=== PATIENT | female | born 1940 | race Caucasian/White ===

== ENCOUNTER 2016-08-07 14:18 | Observation (INO) ==
[2016-08-07] MEDS ORDERED: Ondansetron 4 MG/2 ML VIAL IVP ONE (15:45)
[2016-08-07] MEDS ORDERED: Ipratropium/Albuterol Neb 3 ML IH ONE (15:45)
--- NOTE | 2016-08-07 15:48 | Emergency Department Note ---
Disposition Clinical Impression: Community acquired pneumonia, Hypoxia Disposition: Admitted As Inpatient Condition: Fair Referrals: Sara Hernandez DO [Primary Care Provider] - Forms: ED Satisfaction Letter Time of Disposition: 18:08 General Adult HPI - General Chief complaint: ED Shortness of Breath/Dyspnea Stated complaint: Cough,congestion, SOB Time Seen by Provider: 08/07/16 14:35 Source: patient, family Limitations: no limitations Nursing Notes Reviewed: Yes Vital Signs Reviewed: Yes - History of Present Illness HPI Narrative: 76-year-old female who comes in complaining of initially developed a cough about a week ago progressed to sore throat with pain on swallowing and now with nausea and diarrhea. Pain Scale: 2 - Related Data Home Medications Medication Instructions Recorded Confirmed Aspirin Enteric Coated [Aspirin EC] 81 mg PO DAILY 07/28/15 07/28/15 Cyclobenzaprine [Flexeril] 10 mg PO TID 07/28/15 07/28/15 Docusate [Colace] 100 mg PO BID 07/28/15 07/28/15 Hydrochlorothiazide 25 mg PO DAILY 07/28/15 07/28/15 Insulin ASPART [NovoLOG] 30 unit SQ BID 07/28/15 07/28/15 Insulin NPH Hum/Reg Insulin Hm 100 unit SQ QAM 07/28/15 07/28/15 [Humulin 70/30 Kwikpen] Loratadine [Claritin] 10 mg PO DAILY 07/28/15 07/28/15 Meclizine [Antivert] 25 mg PO DAILY PRN 07/28/15 07/28/15 Multivit-Min/FA/Lycopen/Lutein 1 tab PO DAILY 07/28/15 07/28/15 [Centrum Silver Tablet] Omeprazole [PriLOSEC] 20 mg PO DAILY 07/28/15 07/28/15 Polyethylene Glycol 3350 [MiraLAX] 17 gm PO DAILY 07/28/15 07/28/15 Potassium Chloride 20 meq PO DAILY 07/28/15 07/28/15 Propranolol HCl [Inderal LA] 120 mg PO DAILY 07/28/15 07/28/15 Quinapril HCl [Accupril] 40 mg PO DAILY 07/28/15 07/28/15 [place] Oil/[place]-3 Fatty Acids 1 cap PO DAILY 07/28/15 07/28/15 [Fish Oil 500 mg Softgel] Previous Rx's Medication Instructions Recorded Alprazolam [Xanax 1 MG Tablet] 1 mg PO BID #20 tablet 07/30/15 Amitriptyline [Elavil] 10 mg PO HS tablet 07/30/15 Butalbital/Aspirin/Caffeine 1 cap PO AD PRN #20 capsule 07/30/15 [Fiorinal 50-325-40 mg Capsule] Oxycodone HCl/Acetaminophen 1 tab PO QID PRN #20 tablet 07/30/15 [Percocet 10-325 mg Tablet] Allergies Allergy/AdvReac Type Severity Reaction Status Date / Time morphine Allergy Rash Verified 08/07/16 14:24 Sulfa (Sulfonamide Allergy Rash Verified 08/07/16 14:24 Antibiotics) Constitutional: Denies: fever, chills, weakness, weight change Eyes: Denies: eye pain, eye discharge, vision change ENT ED: Denies: ear pain, throat pain, dental pain, hearing loss, epistaxis, congestion, dysphagia Cardiovascular: Reports: chest pain. Denies: palpitations, dyspnea on exertion , edema, syncope Respiratory: Reports: cough. Denies: dyspnea, wheezes, hemoptysis, stridor Gastrointestinal: Reports: abdominal pain, nausea, diarrhea. Denies: vomiting, constipation, hematemesis, melena, hematochezia Genitourinary: Denies: dysuria, frequency, hematuria, discharge Musculoskeletal: Denies: back pain, neck pain, arthralgia, myalgia Integumentary: Denies: rash, abrasion, lesions Neurological: Denies: headache, weakness, numbness, paresthesias, confusion, abnormal gait, vertigo Psychiatric: Denies: anxiety, depression, suicidal thoughts, homicidal thoughts , auditory hallucinations, visual hallucinations Endocrine: Denies: fatigue Hematological/Lymphatic: Denies: easy bleeding, easy bruising Allergic/Immunologic: Denies: facial swelling, urticaria Past Medical History - Past Medical History Medical history: Reports: arthritis, coronary artery disease, diabetes, fibromyalgia, GERD, hypertension Surgical history: Reports: cholecystectomy, hysterectomy Psychiatric history: Reports: anxiety - Social History Smoking Status: Never smoker Smokeless Tobacco Status: No Alcohol use: Reports: none Drug use: Reports: none Physical Exam - General Limitations: no limitations General appearance: alert - Head Head exam: atraumatic, normocephalic, normal inspection - Eye Eye exam: Present: normal appearance, PERRL, EOMI - ENT ENT exam: normal exam, normal oropharynx, mucous membranes moist - Neck Neck exam: Present: normal inspection, full ROM, trachea midline - Chest Chest inspection: Present: normal inspection, symmetric chest wall rise - Respiratory Respiratory exam: Present: normal lung sounds bilaterally - Cardiovascular Cardiovascular exam: Present: regular rate, normal rhythm, normal heart sounds - Abdominal Exam Abdominal exam: Present: soft, Non-Tender. Absent: tenderness, distention, guarding, rebound, rigidity - Extremities Exam Extremities exam: Present: normal inspection, full ROM. Absent: tenderness, pedal edema - Expanded Lower Extremity Exam Neurovascular/Tendon exam: Absent: motor deficit, sensory deficit, tendon deficit Gait: not tested/not observed - Back Exam Back exam: Present: normal inspection, full ROM. Absent: tenderness - Neurological Exam Neurological exam: Present: alert, oriented X3 - Psychiatric Psychiatric exam: Present: normal affect, normal mood - Skin Skin exam: Present: warm, dry, intact, normal color Course - Consultations Consultation #1: 76-year-old comes in had some scattered wheezes that responded to the breathing treatment en route dropped her pulse ox when she came off of her off oxygen that she was on here. Patient does not wear oxygen she does have sleep apnea however. He had abdominal pain we did obtain a CT of the abdomen CT does show focal right lower lobe infiltrate. The patient does have a low risk for PE and she is not tachycardic she does have a slight elevation in her d-dimer at 992. Stress this with the admitting physician Dr. Landers we will not do that he contrasted CT at this time, since she does drop her oxygen we will go ahead and admit with a community-acquired pneumonia.. Time: 18:14 Vital Signs Temperature 97.9 F 08/07/16 14:19 Pulse Rate 79 08/07/16 14:19 Respiratory Rate 20 08/07/16 14:19 Blood Pressure 150/68 08/07/16 14:19 O2 Sat by Pulse Oximetry 98 08/07/16 14:19 Temperature 97.9 F 08/07/16 14:19 Pulse Rate 95 08/07/16 17:40 Respiratory Rate 18 08/07/16 17:40 Blood Pressure 162/65 08/07/16 17:40 O2 Sat by Pulse Oximetry 97 08/07/16 17:40 Oxygen Delivery Oxygen Delivery Nasal Cannula Medical Decision Making - Lab Data Lab results reviewed: Yes I reviewed the patient's lab results. Result diagrams: 08/07/16 16:51 08/07/16 16:51 Lab Results 08/07/16 08/07/16 08/07/16 Range/Units 16:25 16:51 16:51 WBC 10.5 (4.3-11.1) K/mcL RBC 4.59 (3.82-4.97) M/mcL Hgb 13.2 (11.5-15.4) g/dL Hct 40.1 (35.3-44.9) % MCV 87.4 (83.0-100.0) fL MCH 28.8 (28.0-33.3) pg MCHC 32.9 (31.6-35.5) g/dL RDW 13.1 (11.5-14.5) % Plt Count 318 (140-400) K/mcL MPV 9.4 (9.4-12.4) fL Immature Gran % 0.3 (0-4) % Seg Neutrophils % 75.9 % Lymphocytes % 14.6 % Monocytes % 6.2 % Eosinophils % 2.6 % Basophils % 0.4 % Neutrophils # 8.0 (1.6-8.9) K/mcL Lymphocytes # 1.5 (0.6-4.6) K/mcL Monocytes # 0.7 (0.0-1.3) K/mcL Eosinophils # 0.3 (0.0-0.6) K/mcL Basophils # 0.0 (0.0-0.2) K/mcL PT 11.0 (9.4-12.1) Seconds INR 1.0 APTT 29.0 (26.0-36.0) Seconds D-Dimer 992 H (0-500) ng/mLFEU Sodium (136-145) mEq/L Potassium (3.5-4.5) mEq/L Chloride (98-109) mEq/L Carbon Dioxide (19-29) mEq/L BUN (7-20) mg/dL Creatinine (0.57-1.11) mg/dL Est GFR ( Amer) (> 60) Est GFR (Non-Af Amer) (> 60) BUN/Creatinine Ratio (6-26) Glucose (70-99) mg/dL POC Glucose (58-89) Calculated Osmolality (280-300) Lactic Acid (0.5-2.2) mmol/L Calcium (8.6-10.8) mg/dL Troponin I (0-0.03) ng/mL B-Natriuretic Peptide (0-100) pg/mL Urine Color Yellow (Yellow) Urine Clarity Clear (Clear) Urine pH 7.0 (5.0-8.0) pH Units Ur Specific [place] 1.011 (1.010-1.025) Urine Protein Negative (Neg-Trace) mg/dL Urine Glucose (UA) Normal (Normal) mg/dL Urine Ketones Negative (Negative) mg/dL Urine Blood Negative (Negative) Urine Nitrite Negative (Negative) Urine Bilirubin Negative (Negative) Urine Urobilinogen Normal (Normal) mg/dL Ur Leukocyte Esterase Negative (Negative) Ur Culture Indicated? NO (NO) 08/07/16 08/07/16 08/07/16 Range/Units 16:51 16:51 16:51 WBC (4.3-11.1) K/mcL RBC (3.82-4.97) M/mcL Hgb (11.5-15.4) g/dL Hct (35.3-44.9) % MCV (83.0-100.0) fL MCH (28.0-33.3) pg MCHC (31.6-35.5) g/dL RDW (11.5-14.5) % Plt Count (140-400) K/mcL MPV (9.4-12.4) fL Immature Gran % (0-4) % Seg Neutrophils % % Lymphocytes % % Monocytes % % Eosinophils % % Basophils % % Neutrophils # (1.6-8.9) K/mcL Lymphocytes # (0.6-4.6) K/mcL Monocytes # (0.0-1.3) K/mcL Eosinophils # (0.0-0.6) K/mcL Basophils # (0.0-0.2) K/mcL PT (9.4-12.1) Seconds INR APTT (26.0-36.0) Seconds D-Dimer (0-500) ng/mLFEU Sodium 137 (136-145) mEq/L Potassium 3.6 (3.5-4.5) mEq/L Chloride 102 (98-109) mEq/L Carbon Dioxide 24 (19-29) mEq/L BUN 13 (7-20) mg/dL Creatinine 0.79 (0.57-1.11) mg/dL Est GFR ( Amer) > 60 (> 60) Est GFR (Non-Af Amer) > 60 (> 60) BUN/Creatinine Ratio 16 (6-26) Glucose 182 H (70-99) mg/dL POC Glucose (58-89) Calculated Osmolality 289 (280-300) Lactic Acid 1.8 (0.5-2.2) mmol/L Calcium 9.4 (8.6-10.8) mg/dL Troponin I 0.00 (0-0.03) ng/mL B-Natriuretic Peptide (0-100) pg/mL Urine Color (Yellow) Urine Clarity (Clear) Urine pH (5.0-8.0) pH Units Ur Specific [place] (1.010-1.025) Urine Protein (Neg-Trace) mg/dL Urine Glucose (UA) (Normal) mg/dL Urine Ketones (Negative) mg/dL Urine Blood (Negative) Urine Nitrite (Negative) Urine Bilirubin (Negative) Urine Urobilinogen (Normal) mg/dL Ur Leukocyte Esterase (Negative) Ur Culture Indicated? (NO) 08/07/16 08/07/16 Range/Units 16:51 17:51 WBC (4.3-11.1) K/mcL RBC (3.82-4.97) M/mcL Hgb (11.5-15.4) g/dL Hct (35.3-44.9) % MCV (83.0-100.0) fL MCH (28.0-33.3) pg MCHC (31.6-35.5) g/dL RDW (11.5-14.5) % Plt Count (140-400) K/mcL MPV (9.4-12.4) fL Immature Gran % (0-4) % Seg Neutrophils % % Lymphocytes % % Monocytes % % Eosinophils % % Basophils % % Neutrophils # (1.6-8.9) K/mcL Lymphocytes # (0.6-4.6) K/mcL Monocytes # (0.0-1.3) K/mcL Eosinophils # (0.0-0.6) K/mcL Basophils # (0.0-0.2) K/mcL PT (9.4-12.1) Seconds INR APTT (26.0-36.0) Seconds D-Dimer (0-500) ng/mLFEU Sodium (136-145) mEq/L Potassium (3.5-4.5) mEq/L Chloride (98-109) mEq/L Carbon Dioxide (19-29) mEq/L BUN (7-20) mg/dL Creatinine (0.57-1.11) mg/dL Est GFR ( Amer) (> 60) Est GFR (Non-Af Amer) (> 60) BUN/Creatinine Ratio (6-26) Glucose (70-99) mg/dL POC Glucose 159 H (58-89) Calculated Osmolality (280-300) Lactic Acid (0.5-2.2) mmol/L Calcium (8.6-10.8) mg/dL Troponin I (0-0.03) ng/mL B-Natriuretic Peptide 13 (0-100) pg/mL Urine Color (Yellow) Urine Clarity (Clear) Urine pH (5.0-8.0) pH Units Ur Specific [place] (1.010-1.025) Urine Protein (Neg-Trace) mg/dL Urine Glucose (UA) (Normal) mg/dL Urine Ketones (Negative) mg/dL Urine Blood (Negative) Urine Nitrite (Negative) Urine Bilirubin (Negative) Urine Urobilinogen (Normal) mg/dL Ur Leukocyte Esterase (Negative) Ur Culture Indicated? (NO) - EKG Data EKG #1 EKG attestation: Yes I reviewed and interpreted this EKG. EKG shows normal: sinus rhythm Rate: normal Rhythm: NSR Interpretation: no acute changes
[2016-08-07 16:35] LABS: Bilirubin,Urine Negative (Negative); Blood,Urine Negative (Negative); Clarity,Urine Clear (Clear); Color,Urine Yellow (Yellow); Glucose,Urine (UA) Normal (Normal); Ketones,Urine Negative (Negative); Leukocyte Esterase,Urine Negative (Negative); Nitrite,Urine Negative (Negative); Protein,Urine Negative (Neg-Trace); Specific Gravity,Urine 1.011 (1.010-1.025); Urobilinogen,Urine Normal (Normal)
[2016-08-07] MEDS: 0.9 % Sodium Chloride 1,000 ML IVC SCH ×2 (16:36→20:34)
[2016-08-07 17:00] LABS: Basophils % 0.4 %; Eosinophils # 0.3 K/mcL (0.0-0.6); Eosinophils % 2.6 %; Hematocrit 40.1 % (35.3-44.9); Hemoglobin 13.2 g/dL (11.5-15.4); Immature Granulocytes % 0.3 % (0-4); Lymphocytes # 1.5 K/mcL (0.6-4.6); Lymphocytes % 14.6 %; Mean Corpuscular HGB Conc 32.9 g/dL (31.6-35.5); Mean Corpuscular Hemoglobin 28.8 pg (28.0-33.3); Mean Corpuscular Volume 87.4 fL (83.0-100.0); Mean Platelet Volume 9.4 fL (9.4-12.4); Monocytes # 0.7 K/mcL (0.0-1.3); Monocytes % 6.2 %; Platelet Count 318 K/mcL (140-400); Red Blood Count 4.59 M/mcL (3.82-4.97); Red Cell Distribution Width 13.1 % (11.5-14.5); Segmented Neutrophils % 75.9 %
[2016-08-07 17:13] LABS: BUN/Creatinine Ratio 16 (6-26); Blood Urea Nitrogen 13 mg/dL (7-20); Calcium 9.4 mg/dL (8.6-10.8); Carbon Dioxide 24 mEq/L (19-29); Chloride 102 mEq/L (98-109); Glucose 182 mg/dL (70-99); Osmolality,Calculated 289 (280-300); Potassium 3.6 mEq/L (3.5-4.5); Sodium 137 mEq/L (136-145); eGFR For African Americans > 60 (> 60); eGFR For Non-African Americans > 60 (> 60)
[2016-08-07] MEDS ORDERED: Azithromycin 500 MG in D5% in Water 250 ML IVPB ONE (18:06)
[2016-08-07] MEDS ORDERED: *HR* OxyCODONE/APAP 10/325 TABLET PO ONE (18:47)
[2016-08-07] MEDS ORDERED: Acetaminophen 325 MG TABLET PO PRN (18:57)
[2016-08-07] MEDS ORDERED: Ondansetron 4 MG/2 ML VIAL IVP PRN (18:57)
[2016-08-07] MEDS ORDERED: Naloxone 0.4 MG/ML INJ IVP PRN (18:57)
[2016-08-07] MEDS ORDERED: D5% in Water 1,000 ML IV PRN (19:02)
[2016-08-07] MEDS ORDERED: *HR* Dextrose 50 % in Water (Syg) 50 ML SYRINGE IVP PRN (19:02)
[2016-08-07] MEDS ORDERED: Dextrose Gel 15 GM PO PRN ×2 (19:02)
--- NOTE | 2016-08-07 19:21 | Internal Med History&Physical ---
Date of Encounter: 08/07/16 Time of Encounter: 19:19 Assessment and Plan (1) Community acquired pneumonia Current visit: Yes Status: Acute RLL pneumonia Afebrile, no leukocytosis Possibly viral due to previous week long viral symptoms check urine legionella and strep antigen CPAP for OHS/MIRIAN at bedtime Supplemental O2 to keep O2 sat >92% Robitussin/Lozenges for sore throat D-dimer noted to be elevated, patient is not hypoxic when i took off the supplemental O2, and she is not tachycardic, there is very low suspicion for PE. CXR, Abd CT with RLL pneumonia Anticipate early d/c (2) CAD (coronary artery disease) Current visit: Yes Status: Chronic Chronic, stable, resume home meds Qualifiers: Coronary Disease-Associated Artery/Lesion type: [place] artery [place] vs. transplanted heart: [place] heart Associated angina: without angina Qualified Code(s): I25.10 - Atherosclerotic heart disease of [place] coronary artery without angina pectoris (3) Fibromyalgia Current visit: Yes Status: Chronic Chronic, stable, resume home meds (4) Hypertension Current visit: Yes Status: Chronic Resume home meds Hold ACEI for now Qualifiers: Hypertension type: essential hypertension Qualified Code(s): I10 - Essential (primary) hypertension (5) Insulin dependent diabetes mellitus Current visit: Yes Status: Chronic FS ACHS Basal, prandial and supplemental insulin Internal Medicine - H&P: HPI Chief complaint: Cough Admitted From: Home Plans for Post Hospital Care: Home History of present illness: Ms. Nickerson is a 76 year old female with PMH of HTN, DM, MIRIAN/OHS on CPAP , Chronic low back pain, FIbromyalgia Presented with one week history of cough, dry, with rhinorrhea, sore throat, generalized body pains She reports having sick contacts, no hospitalization in past 3 months/90 days Symptoms initially started with "the flu bug", rhinorrhea, dry cough and sore throat Now cough is persistent with SOB and voice hoarseness She is not on home O2 but is on CPAP at home for MRIIAN/OHS She denies recent travel. She reports trying OTC medications that didn't work She denies chest pain, dizziness, diaphoresis Reports abdominal pain from constant coughing, recent diarrhea but has only gone once today Past Med Surg Social Fam HX - Past Medical History Medical history: arthritis, coronary artery disease, diabetes, fibromyalgia, GERD, hypertension Psychiatric history: anxiety - Past Surgical History Surgical History: cholecystectomy, hysterectomy - Social History Smoking Status: Never smoker Smokeless Tobacco Status: No Alcohol use: none Drug use: none Internal Medicine - H&P: Meds Aspirin Enteric Coated [Aspirin EC] 81 mg PO DAILY 07/28/15 [History] Cyclobenzaprine [Flexeril] 10 mg PO TID 07/28/15 [History] Docusate [Colace] 100 mg PO BID 07/28/15 [History] Hydrochlorothiazide 25 mg PO DAILY 07/28/15 [History] Insulin ASPART [NovoLOG] 30 unit SQ BID 07/28/15 [History] Insulin NPH Hum/Reg Insulin Hm [Humulin 70/30 Kwikpen] 100 unit SQ QAM 07/28/15 [History] Loratadine [Claritin] 10 mg PO DAILY 07/28/15 [History] Meclizine [Antivert] 25 mg PO DAILY PRN 07/28/15 [History] Multivit-Min/FA/Lycopen/Lutein [Centrum Silver Tablet] 1 tab PO DAILY 07/28/15 [ History] Omeprazole [PriLOSEC] 20 mg PO DAILY 07/28/15 [History] Polyethylene Glycol 3350 [MiraLAX] 17 gm PO DAILY 07/28/15 [History] Potassium Chloride 20 meq PO DAILY 07/28/15 [History] Propranolol HCl [Inderal LA] 120 mg PO DAILY 07/28/15 [History] Quinapril HCl [Accupril] 40 mg PO DAILY 07/28/15 [History] [place] Oil/[place]-3 Fatty Acids [Fish Oil 500 mg Softgel] 1 cap PO DAILY [History] Alprazolam [Xanax 1 MG Tablet] 1 mg PO BID #20 tablet 07/30/15 [Rx] Amitriptyline [Elavil] 10 mg PO HS tablet 07/30/15 [Rx] Butalbital/Aspirin/Caffeine [Fiorinal 50-325-40 mg Capsule] 1 cap PO AD PRN #20 capsule 07/30/15 [Rx] Oxycodone HCl/Acetaminophen [Percocet 10-325 mg Tablet] 1 tab PO QID PRN #20 tablet 07/30/15 [Rx] Allergies morphine Allergy (Verified 08/07/16 14:24) Rash Sulfa (Sulfonamide Antibiotics) Allergy (Verified 08/07/16 14:24) Rash All Systems PM: A 10-system review of systems was performed and is negative for pertinent findings except as documented above in the HPI. - Constitutional Constitutional: no chills, no fever(s), no night sweats - EENT Eyes: as per HPI Ears: as per HPI Nose, mouth and throat: as per HPI - Cardiovascular Cardiovascular ROS IM: as per HPI - Respiratory Respiratory: as per HPI - Gastrointestinal Gastrointestinal: as per HPI - Genitourinary Genitourinary: no change in urinary stream, no dysuria, no flank pain, no hematuria - Musculoskeletal Musculoskeletal ROS IM: no numbness, no tingling - Integumentary Integumentary IM: no rash, no unusual bruising - Neurological Neurological ROS: no confusion, no convulsions, no focal weakness, no numbness, no tingling, no tremor(s) - Hematologic/Lymphatic Hematologic/Lymphatic: no easy bruising - Constitutional Vitals: Temp Pulse Resp BP Pulse Ox 97.9 F 92 18 161/67 97 08/07/16 14:19 08/07/16 18:30 08/07/16 19:00 08/07/16 19:00 08/07/16 18:30 General appearance: Present: A&O X 3, pleasant, no acute distress - Head Head exam: Present: atraumatic, normocephalic - Eye Eye exam: Present: PERRL, conjuntiva pink, sclera anicteric - ENT Additional comments: Pharyngeal erythema, no exudates - Respiratory Additional comments: Right basal rhonchi. Chest is otherwise clear - Cardiovascular Cardiovascular exam: Present: RRR, +S1, +S2. Absent: rubs, systolic murmur, tachycardia - GI/Abdominal GI/Abdominal exam: Present: normal bowel sounds, soft, no peritoneal signs. Absent: distended, tenderness - Extremities Exam Extremities exam: Absent: pedal edema - Neurological Exam Neurological exam: Present: CN II-XII intact, oriented X3, no focal deficits. Absent: pronater drift, facial droop, speech deficit - Skin Skin exam: Present: dry, intact Internal Med - H&P Results - Labs CBC & Chem 7: 08/07/16 16:51 08/07/16 16:51
[2016-08-07] MEDS: ALPRAZolam 1 MG TABLET PO SCH (20:34)
[2016-08-07] MEDS: Insulin LISPRO 300 UNITS/3 ML VIAL SQ SCH (21:03)
[2016-08-07] MEDS: Insulin DETEMIR 100 UNIT/ML X5UNITS SQ SCH (21:57)
[2016-08-08] MEDS: *HR* OxyCODONE/APAP 10/325 TABLET PO PRN ×2 (02:13→19:57)
[2016-08-08 05:07] LABS: Basophils % 0.3 %; Eosinophils # 0.2 K/mcL (0.0-0.6); Eosinophils % 2.3 %; Hematocrit 39.3 % (35.3-44.9); Hemoglobin 12.6 g/dL (11.5-15.4); Immature Granulocytes % 0.4 % (0-4); Lymphocytes # 1.8 K/mcL (0.6-4.6); Lymphocytes % 19.1 %; Mean Corpuscular HGB Conc 32.1 g/dL (31.6-35.5); Mean Corpuscular Hemoglobin 28.4 pg (28.0-33.3); Mean Corpuscular Volume 88.7 fL (83.0-100.0); Mean Platelet Volume 9.7 fL (9.4-12.4); Monocytes # 0.7 K/mcL (0.0-1.3); Monocytes % 7.3 %; Neutrophils # 6.5 K/mcL (1.6-8.9); Platelet Count 307 K/mcL (140-400); Red Blood Count 4.43 M/mcL (3.82-4.97); Red Cell Distribution Width 13.1 % (11.5-14.5); Segmented Neutrophils % 70.6 %
[2016-08-08 05:16] LABS: BUN/Creatinine Ratio 13 (6-26); Blood Urea Nitrogen 10 mg/dL (7-20); Calcium 8.5 mg/dL (8.6-10.8); Carbon Dioxide 26 mEq/L (19-29); Chloride 105 mEq/L (98-109); Glucose 158 mg/dL (70-99); Osmolality,Calculated 290 (280-300); Potassium 3.6 mEq/L (3.5-4.5); Sodium 139 mEq/L (136-145); eGFR For African Americans > 60 (> 60); eGFR For Non-African Americans > 60 (> 60)
[2016-08-08] MEDS: 0.9 % Sodium Chloride 1,000 ML IVC SCH (05:46)
[2016-08-08] MEDS: Insulin LISPRO 300 UNITS/3 ML VIAL SQ SCH ×7 (07:46→20:08)
[2016-08-08] MEDS: ALPRAZolam 1 MG TABLET PO SCH ×2 (09:19→19:57)
[2016-08-08] MEDS: Aspirin Enteric Coated 81 MG Tablet PO SCH (09:19)
[2016-08-08] MEDS: Propranolol LA (24 HR) 60 MG CAP.SA.24H PO SCH (09:19)
[2016-08-08] MEDS: Multivit/Ca/Min/Fe/FA 1 TAB TABLET PO SCH (09:20)
--- NOTE | 2016-08-08 12:46 | Internal Med Progress Note ---
Date of Encounter: 08/08/16 Time of Encounter: 10:15 - Assessment and plan (1) Community acquired pneumonia Current Visit: Yes Status: Acute Assessment and plan: Abdominal pelvic CT revealing likely right lower lobe pneumonia. Patient is currently on room air and tolerating it well. Continue azithromycin and ceftriaxone. Patient still endorsing mild weakness and would like to remain in the hospital for 1 more day. Suspect she will be able to be discharged tomorrow pending clinical outcomes. Flu, strep pneumonia, Legionella all negative. Urinalysis negative. On examination, patient with good aeration throughout with nonproductive cough and coarse breath sounds noted right lower lobe. Will add Mucinex to her regimen. D-dimer elevated however patient is on room air and denies shortness of breath, low suspicion for PE. ITS Impressions Chest X-Ray 08/07/16 15:43 IMPRESSION: No acute cardiopulmonary disease. D/ / 08/07/2016 16:02:47 Vlad Guajardo MD / [facility] [place] Interpreting Provider: Vlad Guajardo MD Abdomen/Pelvis CT 08/07/16 15:44 IMPRESSION: Focal right lower lobe infiltrate worrisome for pneumonia. No acute intra-abdominal or pelvic process seen. D/ / 08/07/2016 17:55:59 Vlad Guajardo MD / [facility] Interpreting Provider: Vlad Guajardo MD (2) CAD (coronary artery disease) Current Visit: Yes Status: Chronic Assessment and plan: Patient denies chest pain or shortness of breath above her norm. Qualifiers: Coronary Disease-Associated Artery/Lesion type: [place] artery [place] vs. transplanted heart: [place] heart Associated angina: without angina Qualified Code(s): I25.10 - Atherosclerotic heart disease of [place] coronary artery without angina pectoris (3) Fibromyalgia Current Visit: Yes Status: Chronic (4) Hypertension Current Visit: Yes Status: Chronic Assessment and plan: Borderline hypertensive at times, will continue to trend and adjust medications as indicated. Currently her home dose of propanolol has been continued. Her quinapril and HCTZ have been held pending verification, will have him verified at this time. Renal function normal, will continue once verified. Qualifiers: Hypertension type: essential hypertension Qualified Code(s): I10 - Essential (primary) hypertension (5) Insulin dependent diabetes mellitus Current Visit: Yes Status: Chronic Assessment and plan: Relatively well controlled at home with an A1c of 7.6 on 06/16/16. Continue sliding scale while admitted. (6) DVT prophylaxis Current Visit: No Status: Acute Assessment and plan: Subcutaneous Lovenox (7) Morbid obesity with BMI of 40.0-44.9, adult Current Visit: Yes Status: Chronic - Subjective Interval history: Patient seen and examined. On examination, patient is sitting upright in bed watching television. Patient stating she feels slightly stronger today than she did yesterday. She complains of her chronic pain but denies any new symptoms. She denies shortness of breath above her norm but continues to endorse nasal congestion. She is endorsing a normal appetite. - Constitutional Vitals: Temp Pulse Resp BP Pulse Ox 97.9 F 95 14 153/73 95 08/08/16 11:29 08/08/16 11:29 08/08/16 07:07 08/08/16 11:29 08/08/16 11:29 General appearance: Present: A&O X 3, morbidly obese, pleasant, no acute distress, answers questions appropriately - Head Head exam: Present: atraumatic, normocephalic - Eye Eye exam: Present: PERRL, conjuntiva pink, sclera anicteric Pupils: Present: PERRL - Neck Neck exam general surgery: Present: supple, trachea midline. Absent: lymphadenopathy - Respiratory Respiratory exam: Present: accessory muscle use, decreased breath sounds (Right lower lobe, good aeration elsewhere), rhonchi (Right lower lobe). Absent: rales , respiratory distress, wheezes - Cardiovascular Cardiovascular exam: Present: RRR, +S1, +S2. Absent: diastolic murmur, gallop, rubs, systolic murmur - GI/Abdominal GI/Abdominal exam: Present: normal bowel sounds, soft, no peritoneal signs. Absent: distended, tenderness - Extremities Exam Extremities exam: Present: warm, radial pulses palpable and symetrical. Absent : calf tenderness, cyanotic, pedal edema - Neurological Exam Neurological exam: Present: alert, CN II-XII intact, oriented X3, no focal deficits, strengths equal and symetr throughout. Absent: pronater drift, facial droop, speech deficit - Skin Skin exam: Present: dry, intact, normal color, warm Internal Medicine: Result - Labs CBC & Chem 7: 08/08/16 04:39 08/08/16 04:39 Labs: Short CBC 08/08/16 Range/Units 04:39 WBC 9.2 (4.3-11.1) K/mcL Hgb 12.6 (11.5-15.4) g/dL Hct 39.3 (35.3-44.9) % Plt Count 307 (140-400) K/mcL Neutrophils # 6.5 (1.6-8.9) K/mcL BMP 08/08/16 04:39 Sodium 139 Potassium 3.6 Chloride 105 Carbon Dioxide 26 BUN 10 Creatinine 0.77 Glucose 158 H Calcium 8.5 L - ABG Interpretation ABG results: PT/INR, D-dimer PT 11.0 Seconds (9.4-12.1) 08/07/16 16:51 D-Dimer 992 ng/mLFEU (0-500) H 08/07/16 16:51 Consult Discharge Plan - Plan Referrals: Sara Hernandez DO [Primary Care Provider] -
--- NOTE | 2016-08-08 15:03 | Electrocardiograph Report ---
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
[2016-08-08] MEDS: Ipratropium/Albuterol Neb 3 ML IH SCH ×3 (15:48→21:37)
[2016-08-08] MEDS: Insulin DETEMIR 100 UNIT/ML X5UNITS SQ SCH (19:58)
[2016-08-08] MEDS ORDERED: Azithromycin 1,000 MG in D5% in Water 250 ML IVPB SCH (20:00)
[2016-08-08] MEDS ORDERED: Azithromycin 500 MG in D5% in Water 250 ML IVPB SCH (20:15)
[2016-08-09] MEDS: Ipratropium/Albuterol Neb 3 ML IH SCH ×2 (05:17→10:23)
[2016-08-09] MEDS ORDERED: Fluticasone Propionate Nasal 50 MCG/SPRAY BOTTLE NS PRN (05:54)
[2016-08-09] MEDS ORDERED: *HR* Enoxaparin 40 MG/0.4 ML SYRINGE SQ SCH (06:00)
[2016-08-09 07:41] VITALS: BP 149/66
[2016-08-09] MEDS: Insulin LISPRO 300 UNITS/3 ML VIAL SQ SCH ×4 (07:52→12:22)
[2016-08-09] MEDS: Multivit/Ca/Min/Fe/FA 1 TAB TABLET PO SCH (07:53)
[2016-08-09] MEDS: Aspirin Enteric Coated 81 MG Tablet PO SCH (07:53)
[2016-08-09] MEDS: Propranolol LA (24 HR) 60 MG CAP.SA.24H PO SCH (07:53)
[2016-08-09] MEDS: ALPRAZolam 1 MG TABLET PO SCH (07:53)
[2016-08-09] MEDS: *HR* OxyCODONE/APAP 10/325 TABLET PO PRN (07:58)
--- NOTE | 2016-08-09 12:14 | Discharge Summary ---
Date of Encounter: 08/09/16 Time of Encounter: 10:30 - Discharge Diagnosis (1) Community acquired pneumonia Priority: Primary Status: Acute Comments: Patient denies shortness of breath above her normal on day of discharge. Will send home on antibiotics; no recent admissions. She did not require supplemental oxygenation. 08/08/[address] revealing likely right lower lobe pneumonia. Patient is currently on room air and tolerating it well. Continue azithromycin and ceftriaxone. Patient still endorsing mild weakness and would like to remain in the hospital for 1 more day. Suspect she will be able to be discharged tomorrow pending clinical outcomes. Flu, strep pneumonia, Legionella all negative. Urinalysis negative. On examination, patient with good aeration throughout with nonproductive cough and coarse breath sounds noted right lower lobe. Will add Mucinex to her regimen. D-dimer elevated however patient is on room air and denies shortness of breath, low suspicion for PE. ITS Impressions Chest X-Ray 08/07/16 15:43 IMPRESSION: No acute cardiopulmonary disease. D/ / 08/07/2016 16:02:47 Vlad Guajardo MD / [facility] Interpreting Provider: Vlad Guajardo MD Abdomen/Pelvis CT 08/07/16 15:44 IMPRESSION: Focal right lower lobe infiltrate worrisome for pneumonia. No acute intra-abdominal or pelvic process seen. D/ / 08/07/2016 17:55:59 Vlad Guajardo MD / [facility] Interpreting Provider: Vlad Guajardo MD (2) CAD (coronary artery disease) Priority: Secondary Status: Chronic Comments: Patient denied chest pain or shortness of breath above her norm throughout this admission. Qualifiers: Coronary Disease-Associated Artery/Lesion type: [place] artery [place] vs. transplanted heart: [place] heart Associated angina: without angina Qualified Code(s): I25.10 - Atherosclerotic heart disease of [place] coronary artery without angina pectoris (3) Fibromyalgia Priority: Secondary Status: Chronic (4) Hypertension Priority: Secondary Status: Chronic Comments: Controlled. Recommend continued monitoring and following up outpatient. Qualifiers: Hypertension type: essential hypertension Qualified Code(s): I10 - Essential (primary) hypertension (5) Insulin dependent diabetes mellitus Priority: Secondary Status: Chronic Comments: Relatively well controlled at home with an A1c of 7.6 on 06/16/16. Recommend continued follow-up outpatient. (6) DVT prophylaxis Priority: Primary Status: Acute Comments: Subcutaneous Lovenox while admitted (7) Morbid obesity with BMI of 40.0-44.9, adult Priority: Secondary Status: Chronic - Discharge Medications Prescriptions: GuaiFENesin/Dextromethorphan [Robitussin/Dm] 10 ml PO Q6HR PRN #15 udc PRN Reason: Cough Fluticasone Propionate Nasal [Flonase] 50 mcg NS DAILY PRN #1 bottle PRN Reason: Congestion Levofloxacin 750 mg PO DAILY #7 tablet Home Medications: Aspirin Enteric Coated [Aspirin EC] 81 mg PO DAILY 07/28/15 [History] Cyclobenzaprine [Flexeril] 10 mg PO TID 07/28/15 [History] Docusate [Colace] 100 mg PO BID 07/28/15 [History] Hydrochlorothiazide 25 mg PO DAILY 07/28/15 [History] Insulin ASPART [NovoLOG] 20 unit SQ TID 07/28/15 [History] Meclizine [Antivert] 25 mg PO DAILY PRN 07/28/15 [History] Multivit-Min/FA/Lycopen/Lutein [Centrum Silver Tablet] 1 tab PO DAILY 07/28/15 [ History] Omeprazole [PriLOSEC] 20 mg PO DAILY 07/28/15 [History] Potassium Chloride 20 meq PO BID 07/28/15 [History] Quinapril HCl [Accupril] 40 mg PO DAILY 07/28/15 [History] [place] Oil/[place]-3 Fatty Acids [Fish Oil 500 mg Softgel] 1 cap PO DAILY [History] Amitriptyline [Elavil] 10 mg PO HS tablet 07/30/15 [Rx] Butalbital/Aspirin/Caffeine [Fiorinal 50-325-40 mg Capsule] 1 cap PO AD PRN #20 capsule 07/30/15 [Rx] Oxycodone HCl/Acetaminophen [Percocet 10-325 mg Tablet] 1 tab PO QID PRN #20 tablet 07/30/15 [Rx] Amlodipine Besylate 2.5 mg PO DAILY 08/08/16 [History] Ascorbic Acid/Vitamin E/Biotin [Hair Skin Nails-Biotin Gummies] 1 each PO DAILY 08/08/16 [History] Cholecalciferol (D-3) [Vitamin D] 1,000 unit PO DAILY 08/08/16 [History] Cinnamon Bark [Cinnamon] 500 mg PO DAILY 08/08/16 [History] Cyanocobalamin (B-12) [Vitamin B12] 1,000 mcg IJ QMONTH MDD 1ST OF MONTH [History] Dicyclomine HCl [Bentyl] 20 mg PO QID PRN 08/08/16 [History] Estradiol Cypionate [Depo-Estradiol] 25 mg IJ QMONTH 08/08/16 [History] Insulin Glargine [Lantus] 74 unit SQ QAM 08/08/16 [History] Lactobacillus Acidophilus [Acidophilus Lactobacillus] 1 each PO DAILY 08/08/16 [ History] MOM Conc [MILK OF MAGNESIA conc] 10 ml PO DAILY PRN 08/08/16 [History] Ranitidine HCl [Zantac] 150 mg PO HS 08/08/16 [History] Fluticasone Propionate Nasal [Flonase] 50 mcg NS DAILY PRN #1 bottle 08/09/16 [ Rx] GuaiFENesin/Dextromethorphan [Robitussin/Dm] 10 ml PO Q6HR PRN #15 udc 08/09/16 [Rx] Levofloxacin 750 mg PO DAILY #7 tablet 08/09/16 [Rx] Propranolol LA (24 HR) [Inderal LA] 120 mg PO DAILY cap.sa.24h 08/09/16 [Rx] Allergies/Adverse Reactions: Allergies morphine Allergy (Verified 08/08/16 14:37) Rash Sulfa (Sulfonamide Antibiotics) Allergy (Verified 08/08/16 14:37) Rash Date of admission: 08/07/16 18:23 Primary care physician: Cassandra Muñoz Discharging clinician: Mckenzie Garcia Anticipated date of discharge: 08/09/16 - Patient Status Disposition: Home, Self-Care Condition: Fair Functional capacity at discharge: independent ambulation Overall status at discharge: patient is back to baseline - Discharge Instructions Follow Up With: Sara Hernandez DO [Primary Care Provider] - 08/15/16 9:30 am () Additional Instructions: Follow-up with primary care provider as scheduled - Diet and Activity Activity: increase activity as tolerated Diet: diabetic diet, low fat, low cholesterol, low salt diet Hospital course: Ms. Nickerson is a 76 year old female with past medical history of diabetes, hypertension, MIRIAN on CPAP, chronic low back pain, fibromyalgia. Patient presented to emergency for chief complaint cough with URI symptoms and sore throat with generalized body pains 1 week. Patient reported having sick contacts. No recent hospitalizations. Initially, chest x-ray negative however abdominal pelvic CT finding right lower lobe pneumonia. Patient was admitted to the hospitalist service for further evaluation and management. Patient was admitted to conservative course of 3 days was treated with azithromycin and ceftriaxone. Patient did not require supplemental oxygenation while admitted. D-dimer was elevated however patient did not have symptoms consistent with PE. Flu, strep pneumonia, Legionella swabs negative. Patient concerned as on the day of discharge, she states she does not sleep well stating that she woke up in the middle of the night feeling as if she could not breathe. Of note, she has been noncompliant with CPAP. Throughout this admission, patient denies shortness of breath above her norm and on day of discharge, her sinus pressure was abated with Flonase, guaifenesin and her cough was abated with dextramethorphan. She was independently ambulatory during this admission. No indication for OT and PT consultations. Upon further discussion with the patient, she states that her was recently placed in a residential and she is endorsing increased stress at home. She states that she does have familial support. She was discharged home in stable condition with close outpatient follow-up recommended. ITS Impressions Chest X-Ray 08/07/16 15:43 IMPRESSION: No acute cardiopulmonary disease. D/ / 08/07/2016 16:02:47 Vlad Guajardo MD / [facility] Interpreting Provider: Vlad Guajardo MD Abdomen/Pelvis CT 08/07/16 15:44 IMPRESSION: Focal right lower lobe infiltrate worrisome for pneumonia. No acute intra-abdominal or pelvic process seen. D/ / 08/07/2016 17:55:59 Vlad Guajardo MD / [facility] Interpreting Provider: Vlad Guajardo MD - Time Spent with Patient Total time spent providing and/or coordinating discharge services: - Constitutional Vitals: Temp Pulse Resp BP Pulse Ox 97.8 F 70 20 149/66 94 L 08/09/16 07:40 08/09/16 07:40 08/09/16 10:25 08/09/16 07:40 08/09/16 10:25 General appearance: Present: A&O X 3, morbidly obese, pleasant, no acute distress, answers questions appropriately - Head Head exam: Present: atraumatic, normocephalic - Eye Eye exam: Present: PERRL, conjuntiva pink, sclera anicteric Pupils: Present: PERRL - Neck Neck exam general surgery: Present: supple, trachea midline. Absent: lymphadenopathy - Respiratory Respiratory exam: Present: CTAB, wheezes (Diffuse, expiratory, good aeration). Absent: accessory muscle use, decreased breath sounds, rales, respiratory distress, rhonchi - Cardiovascular Cardiovascular exam: Present: RRR, +S1, +S2. Absent: diastolic murmur, gallop, rubs, systolic murmur - GI/Abdominal GI/Abdominal exam: Present: normal bowel sounds, soft, no peritoneal signs. Absent: distended, tenderness - Extremities Exam Extremities exam: Present: warm, radial pulses palpable and symetrical. Absent : calf tenderness, cyanotic, pedal edema - Neurological Exam Neurological exam: Present: alert, CN II-XII intact, normal gait, oriented X3, no focal deficits, strengths equal and symetr throughout. Absent: pronater drift, facial droop, speech deficit - Skin Skin exam: Present: dry, intact, normal color, warm
== END 2016-08-09 13:44 | disposition home or self-care (01) ==
LOC: EMEROO 14:18 → 3BNU 14:18 → SUATTDRO 18:23 → 3BNU 19:09
PROVIDERS: ADMIT Internal Medicine; ATTEND Nurse Practitioner Family

== ENCOUNTER 2016-12-01 13:21 | Inpatient (IN) ==
--- NOTE | 2016-12-01 13:31 | Emergency Department Note ---
Disposition Clinical Impression: Headache, Chest pain, Morbid obesity with BMI of 40.0-44.9, adult, Hypertension , Diabetes, UTI (urinary tract infection), Sepsis, Fibromyalgia, Frail elderly Disposition: Admitted As Inpatient Referrals: NO,PCP [Non-Partnered Physician] - Forms: Work/School Release, ED Satisfaction Letter General Adult HPI - General Chief complaint: ED General Medical Stated complaint: flu-like symptoms Time Seen by Provider: 12/01/16 13:30 - History of Present Illness HPI Narrative: A 76-year-old female brought in from home via EMS with her female guardian. There are concerns for chills and weakness. There is no history of vomiting or diarrhea or abdominal pain. She has chronic back pain. On arrival to the ED the patient reports she developed some chest pressure. There is no history of radiating pain or shortness of breath or cough coughing up blood blood swelling or pain fall or injury. There is no history of unilateral arm or leg weakness or numbness, slurred speech, confusion, neck stiffness rash or fever. No urinary symptoms. There is no history of cough or rash. The patient is diabetic, her blood sugars been about 295. They notified her primary care physician who recommended the patient come to the ED. Per reports the patient was seen by her primary care physician yesterday. The patient also states she has a headache. There is no history of head injury. He is not known to be anticoagulated at this time. - Related Data Home Medications Medication Instructions Recorded Confirmed RX: Aspirin Enteric Coated 81 mg PO DAILY 07/28/15 08/08/16 [Aspirin EC] RX: Cyclobenzaprine [Flexeril] 10 mg PO TID 07/28/15 08/08/16 RX: Docusate [Colace] 100 mg PO BID 07/28/15 08/08/16 RX: Hydrochlorothiazide 25 mg PO DAILY 07/28/15 08/08/16 RX: Insulin ASPART [NovoLOG] 20 unit SQ TID 07/28/15 08/08/16 RX: Meclizine [Antivert] 25 mg PO DAILY PRN 07/28/15 08/08/16 RX: Multivit-Min/FA/Lycopen/Lutein 1 tab PO DAILY 07/28/15 08/08/16 [Centrum Silver Tablet] RX: Omeprazole [PriLOSEC] 20 mg PO DAILY 07/28/15 08/08/16 RX: Potassium Chloride 20 meq PO BID 07/28/15 08/08/16 RX: Quinapril HCl [Accupril] 40 mg PO DAILY 07/28/15 08/08/16 RX: [place] Oil/[place]-3 Fatty Acids 1 cap PO DAILY 07/28/15 08/08/16 [Fish Oil 500 mg Softgel] RX: Amlodipine Besylate 2.5 mg PO DAILY 08/08/16 08/08/16 RX: Ascorbic Acid/Vitamin E/Biotin 1 each PO DAILY 08/08/16 08/08/16 [Hair Skin Nails-Biotin Gummies] RX: Cholecalciferol (D-3) [Vitamin 1,000 unit PO DAILY 08/08/16 08/08/16 D] RX: Cinnamon Bark [Cinnamon] 500 mg PO DAILY 08/08/16 08/08/16 RX: Cyanocobalamin (B-12) [Vitamin 1,000 mcg IJ QMONTH MDD 1ST OF 08/08/1608/08 B12] MONTH RX: Dicyclomine HCl [Bentyl] 20 mg PO QID PRN 08/08/16 08/08/16 RX: Estradiol Cypionate 25 mg IJ QMONTH 08/08/16 08/08/16 [Depo-Estradiol] RX: Insulin Glargine [Lantus] 74 unit SQ QAM 08/08/16 08/08/16 RX: Lactobacillus Acidophilus 1 each PO DAILY 08/08/16 08/08/16 [Acidophilus Lactobacillus] RX: MOM Conc [MILK OF MAGNESIA 10 ml PO DAILY PRN 08/08/16 08/08/16 conc] RX: Ranitidine HCl [Zantac] 150 mg PO HS 08/08/16 08/08/16 Previous Rx's Medication Instructions Recorded RX: Amitriptyline [Elavil] 10 mg PO HS tablet 07/30/15 RX: Butalbital/Aspirin/Caffeine 1 cap PO AD PRN #20 capsule 07/30/15 [Fiorinal 50-325-40 mg Capsule] RX: Oxycodone HCl/Acetaminophen 1 tab PO QID PRN #20 tablet 07/30/15 [Percocet 10-325 mg Tablet] RX: Fluticasone Propionate Nasal 50 mcg NS DAILY PRN #1 bottle 08/09/16 [Flonase] RX: GuaiFENesin/Dextromethorphan 10 ml PO Q6HR PRN #15 udc 08/09/16 [Robitussin/Dm] RX: Levofloxacin 750 mg PO DAILY #7 tablet 08/09/16 RX: Propranolol LA (24 HR) 120 mg PO DAILY cap.sa.24h 08/09/16 [Inderal LA] Allergies Allergy/AdvReac Type Severity Reaction Status Date / Time gabapentin Allergy Nausea Verified 12/01/16 13:25 morphine Allergy Rash Verified 12/01/16 13:25 Sulfa (Sulfonamide Allergy Rash Verified 12/01/16 13:25 Antibiotics) Past Medical History - Past Medical History Medical history: Reports: arthritis, coronary artery disease, diabetes, fibromyalgia, GERD, hypertension Surgical history: Reports: cholecystectomy, hysterectomy Psychiatric history: Reports: anxiety - Social History Smoking Status: Never smoker Smokeless Tobacco Status: No Alcohol use: Reports: none Drug use: Reports: none Physical Exam - General Limitations: no limitations General appearance: alert, in no apparent distress - Head Head exam: atraumatic, normocephalic, normal inspection - Eye Eye exam: Present: normal appearance, PERRL, EOMI. Absent: conjunctival injection, miosis, mydriasis - ENT ENT exam: normal exam, normal oropharynx, mucous membranes moist - Neck Neck exam: Present: normal inspection, full ROM, trachea midline. Absent: tenderness - Chest Chest inspection: Present: symmetric chest wall rise. Absent: tenderness - Respiratory Respiratory exam: Present: normal lung sounds bilaterally. Absent: respiratory distress, accessory muscle use, prolonged expiratory phase - Cardiovascular Cardiovascular exam: Present: normal rhythm, tachycardia - Abdominal Exam Abdominal exam: Present: soft, Non-Tender, normal bowel sounds. Absent: tenderness, distention, guarding, rebound, rigidity, pulsatile mass - Extremities Exam Extremities exam: Present: normal inspection, full ROM, normal capillary refill. Absent: tenderness, pedal edema, joint swelling, calf tenderness - Expanded Lower Extremity Exam Lower leg exam: Absent: Homans' sign Neurovascular/Tendon exam: Present: normal capillary refill. Absent: motor deficit, sensory deficit, tendon deficit, extremity cold to touch, pallor - Back Exam Back exam: Present: normal inspection, full ROM. Absent: tenderness, CVA tenderness (R), CVA tenderness (L), vertebral tenderness - Neurological Exam Neurological exam: Present: alert, oriented X3, CN II-XII intact. Absent: motor sensory deficit - Psychiatric Psychiatric exam: Present: normal affect, normal mood - Skin Skin exam: Present: warm, dry, intact, normal color. Absent: rash, cyanosis, diaphoresis, erythema, pallor, mottled Course Vital Signs Temperature 99.6 F 12/01/16 13:27 Pulse Rate 111 12/01/16 13:27 Respiratory Rate 16 12/01/16 13:27 Blood Pressure 185/78 12/01/16 13:27 O2 Sat by Pulse Oximetry 97 12/01/16 13:27 Temperature 99.6 F 12/01/16 13:27 Pulse Rate 104 12/01/16 15:58 Respiratory Rate 16 12/01/16 13:27 Blood Pressure 188/99 12/01/16 15:58 O2 Sat by Pulse Oximetry 94 12/01/16 15:58 Oxygen Delivery Oxygen Delivery Room Air Medical Decision Making - [facility] Narrative Medical decision making narrative: Patient is elderly, she is tachycardic with a markedly elevated white count elevated lactate and an urinalysis which shows changes consistent with infection , she meets SIRS sepsis criteria. IV fluid was given as well as Rocephin. The patient also complained of chest pain arrival to the ED. Her EKG showed a sinus tachycardia and her cardiac enzymes were negative. She also complained of a headache, CT head performed negative. The patient has a history of chronic aches and pains and usually takes Percocet at home. She requested pain medicine the ED which was provided. Aspirin was given as a precaution. Based on the patient's apparent sepsis, and multiple other complaints with comorbidities including diabetes I thought it would be appropriate to admit the patient the hospital. I consulted with the hospitalist on-call. - Lab Data Lab results reviewed: Yes I reviewed the patient's lab results. Result diagrams: 12/01/16 14:22 12/01/16 14:22 Lab Results 12/01/16 12/01/16 12/01/16 Range/Units 13:55 14:22 14:22 WBC 22.1 H (4.3-11.1) K/mcL RBC 5.01 H (3.82-4.97) M/mcL Hgb 14.4 (11.5-15.4) g/dL Hct 43.9 (35.3-44.9) % MCV 87.6 (83.0-100.0) fL MCH 28.7 (28.0-33.3) pg MCHC 32.8 (31.6-35.5) g/dL RDW 13.2 (11.5-14.5) % Plt Count 370 (140-400) K/mcL MPV 9.4 (9.4-12.4) fL Immature Gran % 0.6 (0-4) % Seg Neutrophils % 91.2 % Lymphocytes % 4.8 % Monocytes % 3.0 % Eosinophils % 0.1 % Basophils % 0.3 % Neutrophils # 20.1 H (1.6-8.9) K/mcL Lymphocytes # 1.1 (0.6-4.6) K/mcL Monocytes # 0.7 (0.0-1.3) K/mcL Eosinophils # 0.0 (0.0-0.6) K/mcL Basophils # 0.1 (0.0-0.2) K/mcL PT (9.4-12.1) Seconds INR APTT (26.0-36.0) Seconds Sodium 136 (136-145) mEq/L Potassium 4.3 (3.5-4.5) mEq/L Chloride 95 L (98-109) mEq/L Carbon Dioxide 27 (19-29) mEq/L BUN 19 (7-20) mg/dL Creatinine 1.06 (0.57-1.11) mg/dL Est GFR ( Amer) > 60 (> 60) Est GFR (Non-Af Amer) 51 L (> 60) BUN/Creatinine Ratio 18 (6-26) Glucose 252 H (70-99) mg/dL Calculated Osmolality 293 (280-300) Lactic Acid (0.5-2.2) mmol/L Calcium 10.0 (8.6-10.8) mg/dL Magnesium 1.8 (1.6-2.6) mg/dL Total Bilirubin (0.2-1.2) mg/dL Direct Bilirubin (0.0-0.5) mg/dL Indirect Bilirubin (0.0-1.2) mg/dL AST (5-34) Units/L ALT (0-55) Units/L Alkaline Phosphatase (38-126) Units/L Troponin I (0-0.03) ng/mL C-Reactive Protein (Less than 5) mg/L Serum Total Protein (6.0-8.3) g/dL Albumin (3.5-5.0) g/dL Globulin (2.4-3.5) g/dL Albumin/Globulin Ratio (1.1-2.2) Urine Color Yellow (Yellow) Urine Clarity Clear (Clear) Urine pH 6.5 (5.0-8.0) pH Units Ur Specific [place] 1.012 (1.010-1.025) Urine Protein Trace (Neg-Trace) mg/dL Urine Glucose (UA) 100 H (Normal) mg/dL Urine Ketones Negative (Negative) mg/dL Urine Blood Large H (Negative) Urine Nitrite Negative (Negative) Urine Bilirubin Negative (Negative) Urine Urobilinogen Normal (Normal) mg/dL Ur Leukocyte Esterase Negative (Negative) Urine Microscopic RBC 50-100 H (0-3) per hpf Urine Microscopic WBC 0-3 (0-3) per hpf Ur Squamous Epith Cells Many H (None-Few) per lpf Urine Bacteria None Seen (None-Few) per hpf Hyaline Casts None Seen (None-Few) per lpf Ur Culture Indicated? NO (NO) 12/01/16 12/01/16 12/01/16 Range/Units 14:22 14:22 14:22 WBC (4.3-11.1) K/mcL RBC (3.82-4.97) M/mcL Hgb (11.5-15.4) g/dL Hct (35.3-44.9) % MCV (83.0-100.0) fL MCH (28.0-33.3) pg MCHC (31.6-35.5) g/dL RDW (11.5-14.5) % Plt Count (140-400) K/mcL MPV (9.4-12.4) fL Immature Gran % (0-4) % Seg Neutrophils % % Lymphocytes % % Monocytes % % Eosinophils % % Basophils % % Neutrophils # (1.6-8.9) K/mcL Lymphocytes # (0.6-4.6) K/mcL Monocytes # (0.0-1.3) K/mcL Eosinophils # (0.0-0.6) K/mcL Basophils # (0.0-0.2) K/mcL PT (9.4-12.1) Seconds INR APTT (26.0-36.0) Seconds Sodium (136-145) mEq/L Potassium (3.5-4.5) mEq/L Chloride (98-109) mEq/L Carbon Dioxide (19-29) mEq/L BUN (7-20) mg/dL Creatinine (0.57-1.11) mg/dL Est GFR ( Amer) (> 60) Est GFR (Non-Af Amer) (> 60) BUN/Creatinine Ratio (6-26) Glucose (70-99) mg/dL Calculated Osmolality (280-300) Lactic Acid 3.3 H (0.5-2.2) mmol/L Calcium (8.6-10.8) mg/dL Magnesium (1.6-2.6) mg/dL Total Bilirubin 0.5 (0.2-1.2) mg/dL Direct Bilirubin 0.2 (0.0-0.5) mg/dL Indirect Bilirubin 0.3 (0.0-1.2) mg/dL AST 23 (5-34) Units/L ALT 14 (0-55) Units/L Alkaline Phosphatase 75 (38-126) Units/L Troponin I 0.00 (0-0.03) ng/mL C-Reactive Protein 32 H (Less than 5) mg/L Serum Total Protein 7.6 (6.0-8.3) g/dL Albumin 3.5 (3.5-5.0) g/dL Globulin 4.1 H (2.4-3.5) g/dL Albumin/Globulin Ratio 0.9 L (1.1-2.2) Urine Color (Yellow) Urine Clarity (Clear) Urine pH (5.0-8.0) pH Units Ur Specific [place] (1.010-1.025) Urine Protein (Neg-Trace) mg/dL Urine Glucose (UA) (Normal) mg/dL Urine Ketones (Negative) mg/dL Urine Blood (Negative) Urine Nitrite (Negative) Urine Bilirubin (Negative) Urine Urobilinogen (Normal) mg/dL Ur Leukocyte Esterase (Negative) Urine Microscopic RBC (0-3) per hpf Urine Microscopic WBC (0-3) per hpf Ur Squamous Epith Cells (None-Few) per lpf Urine Bacteria (None-Few) per hpf Hyaline Casts (None-Few) per lpf Ur Culture Indicated? (NO) 12/01/16 Range/Units 14:22 WBC (4.3-11.1) K/mcL RBC (3.82-4.97) M/mcL Hgb (11.5-15.4) g/dL Hct (35.3-44.9) % MCV (83.0-100.0) fL MCH (28.0-33.3) pg MCHC (31.6-35.5) g/dL RDW (11.5-14.5) % Plt Count (140-400) K/mcL MPV (9.4-12.4) fL Immature Gran % (0-4) % Seg Neutrophils % % Lymphocytes % % Monocytes % % Eosinophils % % Basophils % % Neutrophils # (1.6-8.9) K/mcL Lymphocytes # (0.6-4.6) K/mcL Monocytes # (0.0-1.3) K/mcL Eosinophils # (0.0-0.6) K/mcL Basophils # (0.0-0.2) K/mcL PT 10.3 (9.4-12.1) Seconds INR 1.0 APTT 27.1 (26.0-36.0) Seconds Sodium (136-145) mEq/L Potassium (3.5-4.5) mEq/L Chloride (98-109) mEq/L Carbon Dioxide (19-29) mEq/L BUN (7-20) mg/dL Creatinine (0.57-1.11) mg/dL Est GFR ( Amer) (> 60) Est GFR (Non-Af Amer) (> 60) BUN/Creatinine Ratio (6-26) Glucose (70-99) mg/dL Calculated Osmolality (280-300) Lactic Acid (0.5-2.2) mmol/L Calcium (8.6-10.8) mg/dL Magnesium (1.6-2.6) mg/dL Total Bilirubin (0.2-1.2) mg/dL Direct Bilirubin (0.0-0.5) mg/dL Indirect Bilirubin (0.0-1.2) mg/dL AST (5-34) Units/L ALT (0-55) Units/L Alkaline Phosphatase (38-126) Units/L Troponin I (0-0.03) ng/mL C-Reactive Protein (Less than 5) mg/L Serum Total Protein (6.0-8.3) g/dL Albumin (3.5-5.0) g/dL Globulin (2.4-3.5) g/dL Albumin/Globulin Ratio (1.1-2.2) Urine Color (Yellow) Urine Clarity (Clear) Urine pH (5.0-8.0) pH Units Ur Specific [place] (1.010-1.025) Urine Protein (Neg-Trace) mg/dL Urine Glucose (UA) (Normal) mg/dL Urine Ketones (Negative) mg/dL Urine Blood (Negative) Urine Nitrite (Negative) Urine Bilirubin (Negative) Urine Urobilinogen (Normal) mg/dL Ur Leukocyte Esterase (Negative) Urine Microscopic RBC (0-3) per hpf Urine Microscopic WBC (0-3) per hpf Ur Squamous Epith Cells (None-Few) per lpf Urine Bacteria (None-Few) per hpf Hyaline Casts (None-Few) per lpf Ur Culture Indicated? (NO) - Radiology Data Radiology results reviewed: Yes I reviewed the patient's radiology results.
[2016-12-01] MEDS ORDERED: 0.9 % Sodium Chloride 1,000 ML IVC ONE (13:46)
[2016-12-01 14:09] LABS: Bilirubin,Urine Negative (Negative); Blood,Urine Large (Negative); Clarity,Urine Clear (Clear); Color,Urine Yellow (Yellow); Glucose,Urine (UA) 100 mg/dL (Normal); Ketones,Urine Negative (Negative); Leukocyte Esterase,Urine Negative (Negative); Nitrite,Urine Negative (Negative); PH,Urine 6.5 pH Units (5.0-8.0); Protein,Urine Trace mg/dL (Neg-Trace); Specific Gravity,Urine 1.012 (1.010-1.025); Urobilinogen,Urine Normal (Normal)
[2016-12-01 14:12] LABS: Bacteria,Urine None Seen per hpf (None-Few); Hyaline Casts,Urine None Seen per lpf (None-Few); RBC,Urine 50-100 per hpf (0-3); Squamous Epithelial Cell,Urine Many per lpf (None-Few); WBC,Urine 0-3 per hpf (0-3)
[2016-12-01 14:32] LABS: Basophils # 0.1 K/mcL (0.0-0.2); Basophils % 0.3 %; Eosinophils % 0.1 %; Hematocrit 43.9 % (35.3-44.9); Hemoglobin 14.4 g/dL (11.5-15.4); Immature Granulocytes % 0.6 % (0-4); Lymphocytes # 1.1 K/mcL (0.6-4.6); Lymphocytes % 4.8 %; Mean Corpuscular HGB Conc 32.8 g/dL (31.6-35.5); Mean Corpuscular Hemoglobin 28.7 pg (28.0-33.3); Mean Corpuscular Volume 87.6 fL (83.0-100.0); Mean Platelet Volume 9.4 fL (9.4-12.4); Monocytes # 0.7 K/mcL (0.0-1.3); Neutrophils # 20.1 K/mcL (1.6-8.9); Platelet Count 370 K/mcL (140-400); Red Blood Count 5.01 M/mcL (3.82-4.97); Red Cell Distribution Width 13.2 % (11.5-14.5); Segmented Neutrophils % 91.2 %
[2016-12-01 14:39] LABS: Prothrombin Time 10.3 Seconds (9.4-12.1)
[2016-12-01 14:42] LABS: Activated Partial Thrombo Time 27.1 Seconds (26.0-36.0); BUN/Creatinine Ratio 18 (6-26); Blood Urea Nitrogen 19 mg/dL (7-20); Carbon Dioxide 27 mEq/L (19-29); Chloride 95 mEq/L (98-109); Glucose 252 mg/dL (70-99); Magnesium 1.8 mg/dL (1.6-2.6); Osmolality,Calculated 293 (280-300); Potassium 4.3 mEq/L (3.5-4.5); Sodium 136 mEq/L (136-145); eGFR For African Americans > 60 (> 60); eGFR For Non-African Americans 51 (> 60)
[2016-12-01 14:43] LABS: Albumin 3.5 g/dL (3.5-5.0); Albumin/Globulin Ratio 0.9 (1.1-2.2); Bilirubin,Indirect 0.3 mg/dL (0.0-1.2); Bilirubin,Total 0.5 mg/dL (0.2-1.2); Globulin 4.1 g/dL (2.4-3.5); Total Protein 7.6 g/dL (6.0-8.3)
[2016-12-01 14:44] LABS: Bilirubin,Direct 0.2 mg/dL (0.0-0.5)
[2016-12-01] MEDS ORDERED: Aspirin 325 MG TABLET PO ONE (15:45)
[2016-12-01] MEDS ORDERED: *HR* HYDROmorphone (PF) 1 MG/ML SYRINGE IVP ONE (15:47)
[2016-12-01] MEDS ORDERED: Ondansetron 4 MG/2 ML VIAL IVP ONE (15:48)
[2016-12-01] MEDS: 0.9 % Sodium Chloride 1,000 ML IVC SCH ×4 (15:59→22:20)
[2016-12-01] MEDS ORDERED: Vancomycin 1,000 MG in D5% in Water 250 ML IVPB ONE (17:53)
[2016-12-01] MEDS ORDERED: Piperacillin/Tazobactam 3.375 GM in D5% in Water (Mini-Bag+) 100 ML IVPB ONE (17:53)
[2016-12-01] MEDS ORDERED: Acyclovir 1,000 MG in D5% in Water 250 ML IVPB ONE (18:02)
[2016-12-01] MEDS: *HR* OxyCODONE/APAP 10/325 TABLET PO PRN (21:15)
--- NOTE | 2016-12-01 21:34 | Internal Med History&Physical ---
Date of Encounter: 12/01/16 Time of Encounter: 21:29 Assessment and Plan (1) Insulin dependent diabetes mellitus Current visit: No Status: Chronic SSI (2) Sepsis Current visit: Yes Status: Acute Patient has a WBC 76097. No clear source evident on CT of chest, abdomen and pelvis or UA. Initially confused, lethargic, some improvement after hydration. Has some headache and neck pain with flexion movement that is new for her and has been present over the past week. Anesthesia were called to do the LP but they felt that her history of spinal stenosis will make it a complicated procedure. Patient was already sent to ICU from ER. Will start emperic vanc and ceftriaxone. Check blood and urine cultures. Will also check influenza, mycoplasma, legionella. Qualifiers: Qualified Code(s): A41.9 - Sepsis, unspecified organism Internal Medicine - H&P: HPI History of present illness: Ms. Nickerson is a 76 year old female presents to the emergency room with multiple complains. She has been having fevers (99.6 on arrival to the ER), chills, generalized malaise. She has also been having over the past week headache and neck pain /stiffnes. No sick contacts or recent travel. No cough, expectoration , diarrhea, urinary symptoms, abdominal pain or open wounds. WBC 10665 on arrival to ED. No clear infectious cause on imaging of chest, abdomen/pelvis. Lumbar puncture was planned however anesthesiologits refused given her history of spine surgeries and spinal stenosis. Past Med Surg Social Fam HX - Past Medical History Medical history: arthritis, coronary artery disease, diabetes, fibromyalgia, GERD, hypertension Psychiatric history: anxiety - Past Surgical History Surgical History: cholecystectomy, hysterectomy - Social History Smoking Status: Never smoker Smokeless Tobacco Status: No Alcohol use: none Drug use: none - Family History Mother Living Status: Hx Family Respiratory Disorders: Yes (TB) Hx Family Neurologic Disorders: Yes (Fibromylagia, CVA) Internal Medicine - H&P: Meds Aspirin Enteric Coated [Aspirin EC] 81 mg PO DAILY 07/28/15 [History] Docusate [Colace] 100 mg PO BID 07/28/15 [History] Hydrochlorothiazide 25 mg PO DAILY 07/28/15 [History] Insulin ASPART [NovoLOG] 20 unit SQ TID 07/28/15 [History] Meclizine [Antivert] 25 mg PO DAILY PRN 07/28/15 [History] Multivit-Min/FA/Lycopen/Lutein [Centrum Silver Tablet] 1 tab PO DAILY 07/28/15 [ History] Omeprazole [PriLOSEC] 20 mg PO DAILY 07/28/15 [History] Potassium Chloride 20 meq PO BID 07/28/15 [History] Quinapril HCl [Accupril] 40 mg PO DAILY 07/28/15 [History] [place] Oil/Fork-3 Fatty Acids [Fish Oil 500 mg Softgel] 1 cap PO DAILY [History] Oxycodone HCl/Acetaminophen [Percocet 10-325 mg Tablet] 1 tab PO QID PRN #20 tablet 07/30/15 [Rx] Amlodipine Besylate 2.5 mg PO DAILY 08/08/16 [History] Ascorbic Acid/Vitamin E/Biotin [Hair Skin Nails-Biotin Gummies] 1 each PO DAILY 08/08/16 [History] Cholecalciferol (D-3) [Vitamin D] 1,000 unit PO DAILY 08/08/16 [History] Cinnamon Bark [Cinnamon] 500 mg PO DAILY 08/08/16 [History] Cyanocobalamin (B-12) [Vitamin B12] 1,000 mcg IJ QMONTH MDD 1ST OF MONTH [History] Dicyclomine HCl [Bentyl] 20 mg PO QID PRN 08/08/16 [History] Estradiol Cypionate [Depo-Estradiol] 25 mg IJ QMONTH 08/08/16 [History] Lactobacillus Acidophilus [Acidophilus Lactobacillus] 1 each PO DAILY 08/08/16 [ History] Ranitidine HCl [Zantac] 150 mg PO HS 08/08/16 [History] Amitriptyline [Elavil] 50 mg PO HS 12/01/16 [History] Cider Vinegar [Apple Cider Vinegar] 600 mg PO DAILY 12/01/16 [History] Furosemide [Lasix] 20 mg PO DAILY 12/01/16 [History] Gabapentin [Neurontin] See Taper PO AD 12/01/16 [History] Insulin NPH, HUMAN [HumuLIN N] 74 unit SQ QAM 12/01/16 [History] Loratadine [Claritin] 10 mg PO DAILY 12/01/16 [History] Rosuvastatin Calcium [Crestor] 5 mg PO DAILY 12/01/16 [History] Allergies gabapentin Allergy (Verified 12/01/16 13:25) Nausea morphine Allergy (Verified 12/01/16 13:25) Rash Sulfa (Sulfonamide Antibiotics) Allergy (Verified 12/01/16 13:25) Rash All Systems PM: A 10-system review of systems was performed and is negative for pertinent findings except as documented above in the HPI. Review of systems: 10 point ROS is negative except for HPI - Constitutional Vitals: Temp Pulse Resp BP Pulse Ox 97.5 F L 86 18 120/65 97 12/01/16 19:00 12/01/16 21:04 12/01/16 21:00 12/01/16 21:00 12/01/16 21:00 Exam: general: patient is lethargic no distress Cardiac: Normal S1, S2, no additional sounds or murmurs. Chest: clear to auscultation Neuro: No focal deficits. Pain on neck flexion. Skin: No rash Internal Med - H&P Results - Labs CBC & Chem 7: 12/01/16 14:22 12/01/16 14:22
[2016-12-01] MEDS ORDERED: Vancomycin 1,500 MG in D5% in Water 250 ML IVPB SCH (22:00)
[2016-12-01] MEDS: Vancomycin 1,500 MG in D5% in Water 250 ML IVPB SCH (22:20)
[2016-12-01] MEDS: *HR* HYDROmorphone (PF) 1 MG/ML SYRINGE IVP PRN (22:20)
[2016-12-02] MEDS: Insulin LISPRO 300 UNITS/3 ML VIAL SQ SCH ×5 (00:39→21:24)
[2016-12-02 03:26] LABS: Basophils % 0.2 %; Eosinophils # 0.1 K/mcL (0.0-0.6); Eosinophils % 0.3 %; Hematocrit 35.3 % (35.3-44.9); Immature Granulocytes % 0.4 % (0-4); Lymphocytes # 2.6 K/mcL (0.6-4.6); Lymphocytes % 14.4 %; Mean Corpuscular HGB Conc 33.1 g/dL (31.6-35.5); Mean Corpuscular Volume 87.4 fL (83.0-100.0); Monocytes # 0.8 K/mcL (0.0-1.3); Monocytes % 4.6 %; Neutrophils # 14.6 K/mcL (1.6-8.9); Platelet Count 338 K/mcL (140-400); Red Blood Count 4.04 M/mcL (3.82-4.97); Red Cell Distribution Width 13.3 % (11.5-14.5); Segmented Neutrophils % 80.1 %
[2016-12-02 03:27] LABS: Hemoglobin 11.7 g/dL (11.5-15.4)
[2016-12-02 03:41] LABS: Alanine Aminotransferase 11 Units/L (0-55); Albumin 2.8 g/dL (3.5-5.0); Albumin/Globulin Ratio 0.9 (1.1-2.2); Alkaline Phosphatase 54 Units/L (38-126); Aspartate Amino Transferase 14 Units/L (5-34); BUN/Creatinine Ratio 17 (6-26); Bilirubin,Total 0.4 mg/dL (0.2-1.2); Blood Urea Nitrogen 15 mg/dL (7-20); C-Reactive Protein 80 mg/L (Less than 5); Carbon Dioxide 27 mEq/L (19-29); Chloride 103 mEq/L (98-109); Globulin 3.2 g/dL (2.4-3.5); Glucose 158 mg/dL (70-99); Magnesium 1.8 mg/dL (1.6-2.6); Osmolality,Calculated 290 (280-300); Potassium 3.6 mEq/L (3.5-4.5); Sodium 138 mEq/L (136-145); eGFR For African Americans > 60 (> 60); eGFR For Non-African Americans > 60 (> 60)
[2016-12-02] MEDS: *HR* HYDROmorphone (PF) 1 MG/ML SYRINGE IVP PRN ×3 (03:56→23:29)
[2016-12-02] MEDS: Oxymetazoline Nasal SPRAY BOTTLE NS PRN ×2 (03:57→21:31)
--- NOTE | 2016-12-02 06:40 | Electrocardiograph Report ---
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
[2016-12-02] MEDS ORDERED: Lisinopril 20 MG TABLET PO SCH (09:00)
[2016-12-02] MEDS: Famotidine 20 MG/2 ML VIAL IVP SCH (09:21)
[2016-12-02] MEDS: *HR* OxyCODONE/APAP 10/325 TABLET PO PRN ×2 (09:21→16:30)
[2016-12-02] MEDS: (Rosuvastatin Calcium [Crestor] 5 MG) PO SCH (09:21)
[2016-12-02] MEDS: amLODIPine 5 MG TABLET PO SCH (09:22)
[2016-12-02] MEDS: Vancomycin 1,500 MG in D5% in Water 250 ML IVPB SCH ×2 (10:58→21:36)
[2016-12-02] MEDS: 0.9 % Sodium Chloride 1,000 ML IVC SCH (10:59)
--- NOTE | 2016-12-02 11:59 | Internal Med Progress Note ---
Date of Encounter: 12/02/16 Time of Encounter: 11:57 - Assessment and plan (1) Sepsis Current Visit: Yes Status: Acute Assessment and plan: Present source most likely urinary Low suspicion for meningitis, patient refused LP Blood, Urine cultures have been sent and pending Afebrile Leukocytosis improving Continue Ceftriaxone Continue Vancomycin, plan is to de-escalate rapidly with culture reports Monitor renal function Qualifiers: Sepsis type: sepsis due to unspecified organism Qualified Code(s): A41.9 - Sepsis, unspecified organism (2) Insulin dependent diabetes mellitus Current Visit: No Status: Chronic Assessment and plan: A1C 7.2 Start levemir, continue SSI Continue FS ACHS AD diet (3) Hypertension Current Visit: Yes Status: Chronic Assessment and plan: Continue home meds Qualifiers: Hypertension type: essential hypertension Qualified Code(s): I10 - Essential (primary) hypertension (4) Fibromyalgia Current Visit: Yes Status: Chronic Assessment and plan: Resume home meds (5) Morbid obesity with BMI of 40.0-44.9, adult Current Visit: Yes Status: Chronic Assessment and plan: Lifestyle modification - Subjective Interval history: 76 F with PMH of CAD, DM, Fibromyalgia, GERD She is admitted and being managed for sepsis, suspected source is UTI and low suspicion for meningitis Patient has persistently refused lumber puncture She believes she has made remarkable improvement and denies any new complains Leukocytosis has improved - Constitutional Vitals: Temp Pulse Resp BP Pulse Ox 98.0 F 75 20 120/69 95 12/02/16 11:22 12/02/16 11:30 12/02/16 11:00 12/02/16 11:00 12/02/16 11:00 General appearance: Present: A&O X 3, morbidly obese, pleasant, no acute distress - Head Head exam: Present: atraumatic, normocephalic - Eye Eye exam: Present: PERRL, conjuntiva pink, sclera anicteric Pupils: Present: PERRL - Neck Neck exam general surgery: Present: supple, trachea midline. Absent: lymphadenopathy, nuchal rigidity - Respiratory Respiratory exam: Present: CTAB. Absent: accessory muscle use, rales, rhonchi, wheezes - Cardiovascular Cardiovascular exam: Present: RRR, +S1, +S2. Absent: diastolic murmur, gallop, rubs, systolic murmur - GI/Abdominal GI/Abdominal exam: Present: normal bowel sounds, soft, no peritoneal signs. Absent: distended, tenderness - Extremities Exam Extremities exam: Present: warm, radial pulses palpable and symetrical. Absent : calf tenderness, cyanotic, pedal edema - Neurological Exam Neurological exam: Present: alert, CN II-XII intact, oriented X3, no focal deficits. Absent: pronater drift, facial droop, speech deficit - Skin Skin exam: Present: dry, intact Internal Medicine: Result - Labs CBC & Chem 7: 12/02/16 03:15 12/02/16 03:15 Labs: Short CBC 12/02/16 Range/Units 03:15 WBC 18.2 H (4.3-11.1) K/mcL Hgb 11.7 D (11.5-15.4) g/dL Hct 35.3 (35.3-44.9) % Plt Count 338 (140-400) K/mcL Neutrophils # 14.6 H (1.6-8.9) K/mcL BMP 12/02/16 03:15 Sodium 138 Potassium 3.6 Chloride 103 Carbon Dioxide 27 BUN 15 Creatinine 0.88 Glucose 158 H Calcium 8.0 L D Liver Function 12/02/16 Range/Units 03:15 Total Bilirubin 0.4 (0.2-1.2) mg/dL AST 14 (5-34) Units/L ALT 11 (0-55) Units/L Alkaline Phosphatase 54 (38-126) Units/L Albumin 2.8 L (3.5-5.0) g/dL - ABG Interpretation ABG results: PT/INR, D-dimer PT 10.3 Seconds (9.4-12.1) 12/01/16 14:22 Consult Discharge Plan - Plan Referrals: Sara Hernandez DO [Primary Care Provider] -
[2016-12-02] MEDS ORDERED: Cyanocobalamin (B-12) 1,000 MCG/ML VIAL IM SCH (12:00)
[2016-12-02] MEDS: Artificial Tears SOLN 15 ML BOTTLE BOTH EYES SCH ×3 (13:38→21:25)
[2016-12-02] MEDS ORDERED: Dextrose Gel 15 GM PO PRN ×2 (16:56)
[2016-12-02] MEDS ORDERED: D5% in Water 1,000 ML IVC PRN (16:56)
[2016-12-02] MEDS ORDERED: *HR* Dextrose 50 % in Water (Syg) 50 ML SYRINGE IVP PRN (16:56)
[2016-12-02] MEDS: Insulin DETEMIR 100 UNIT/ML X5UNITS SQ SCH (21:24)
[2016-12-02] MEDS ORDERED: Vancomycin 1,500 MG in D5% in Water 250 ML IVPB SCH (22:00)
[2016-12-03 03:28] LABS: Basophils % 0.3 %; Eosinophils # 0.2 K/mcL (0.0-0.6); Eosinophils % 1.7 %; Hematocrit 37.8 % (35.3-44.9); Hemoglobin 12.3 g/dL (11.5-15.4); Immature Granulocytes % 0.3 % (0-4); Lymphocytes # 2.2 K/mcL (0.6-4.6); Lymphocytes % 18.8 %; Mean Corpuscular HGB Conc 32.5 g/dL (31.6-35.5); Mean Corpuscular Hemoglobin 28.7 pg (28.0-33.3); Mean Corpuscular Volume 88.1 fL (83.0-100.0); Mean Platelet Volume 9.2 fL (9.4-12.4); Monocytes # 0.6 K/mcL (0.0-1.3); Monocytes % 5.5 %; Neutrophils # 8.4 K/mcL (1.6-8.9); Platelet Count 355 K/mcL (140-400); Red Blood Count 4.29 M/mcL (3.82-4.97); Red Cell Distribution Width 13.2 % (11.5-14.5); Segmented Neutrophils % 73.4 %
[2016-12-03 03:40] LABS: BUN/Creatinine Ratio 14 (6-26); Blood Urea Nitrogen 13 mg/dL (7-20); Calcium 8.9 mg/dL (8.6-10.8); Carbon Dioxide 26 mEq/L (19-29); Chloride 103 mEq/L (98-109); Glucose 194 mg/dL (70-99); Osmolality,Calculated 295 (280-300); Potassium 3.9 mEq/L (3.5-4.5); Sodium 140 mEq/L (136-145); eGFR For African Americans > 60 (> 60); eGFR For Non-African Americans > 60 (> 60)
[2016-12-03] MEDS: Insulin LISPRO 300 UNITS/3 ML VIAL SQ SCH ×4 (07:50→22:58)
[2016-12-03] MEDS: amLODIPine 5 MG TABLET PO SCH (07:57)
[2016-12-03] MEDS: (Rosuvastatin Calcium [Crestor] 5 MG) PO SCH (07:59)
[2016-12-03] MEDS: Furosemide 20 MG TABLET PO SCH (07:59)
[2016-12-03] MEDS: Cholecalciferol (D-3) 1,000 UNIT TABLET PO SCH (07:59)
[2016-12-03] MEDS: Multivit/Ca/Min/Fe/FA 1 TAB TABLET PO SCH (07:59)
[2016-12-03] MEDS: Aspirin Enteric Coated 81 MG Tablet PO SCH (07:59)
[2016-12-03] MEDS: ASCORBIC ACID PO SCH (08:00)
[2016-12-03] MEDS: VITAMIN E PO SCH (08:00)
[2016-12-03] MEDS: Famotidine 20 MG/2 ML VIAL IVP SCH (08:00)
[2016-12-03] MEDS: Artificial Tears SOLN 15 ML BOTTLE BOTH EYES SCH ×4 (08:00→22:50)
[2016-12-03] MEDS: BIOTIN PO SCH (08:00)
[2016-12-03] MEDS: 0.9 % Sodium Chloride 1,000 ML IVC SCH ×4 (08:13→08:16)
[2016-12-03] MEDS ORDERED: ALPRAZolam 0.25 MG TABLET PO ONE (09:29)
[2016-12-03] MEDS ORDERED: ALPRAZolam 0.5 MG TABLET PO ONE (09:45)
--- NOTE | 2016-12-03 11:44 | Internal Med Progress Note ---
Date of Encounter: 12/03/16 Time of Encounter: 11:44 - Assessment and plan (1) Sepsis Current Visit: Yes Status: Acute Assessment and plan: Present source most likely urinary Low suspicion for meningitis, patient refused LP Blood cuture preliminary no growth Urine culture is negative Patient is afebrile Leukocytosis improving Continue Ceftriaxone Will discontinue Vancomycin and observe closely, suspicion for meningitis is low , patient made rapid recovery and has no neurological signs Qualifiers: Sepsis type: sepsis due to unspecified organism Qualified Code(s): A41.9 - Sepsis, unspecified organism (2) Insulin dependent diabetes mellitus Current Visit: Yes Status: Chronic Assessment and plan: A1C 7.2 Start levemir, continue SSI Continue FS ACHS AD diet (3) Hypertension Current Visit: Yes Status: Chronic Assessment and plan: Continue home meds Qualifiers: Hypertension type: essential hypertension Qualified Code(s): I10 - Essential (primary) hypertension (4) Fibromyalgia Current Visit: Yes Status: Chronic Assessment and plan: Resume home meds (5) Morbid obesity with BMI of 40.0-44.9, adult Current Visit: Yes Status: Chronic Assessment and plan: Lifestyle modification - Subjective Interval history: 76 F with PMH of CAD, DM, Fibromyalgia, GERD She is admitted and being managed for sepsis, suspected source is UTI and low suspicion for meningitis Patient has persistently refused lumber puncture She is making significant improvement. Leukocytosis has resolved Preliminary cultures are negative - Constitutional Vitals: Temp Pulse Resp BP Pulse Ox 98.0 F 86 14 178/67 97 12/03/16 07:45 12/03/16 11:00 12/03/16 11:00 12/03/16 11:00 12/03/16 11:00 General appearance: Present: A&O X 3, morbidly obese, pleasant, no acute distress - Head Head exam: Present: atraumatic, normocephalic - Eye Eye exam: Present: PERRL, conjuntiva pink, sclera anicteric Pupils: Present: PERRL - Neck Neck exam general surgery: Present: supple, trachea midline. Absent: lymphadenopathy - Respiratory Respiratory exam: Present: CTAB. Absent: accessory muscle use, rales, rhonchi, wheezes - Cardiovascular Cardiovascular exam: Present: RRR, +S1, +S2. Absent: diastolic murmur, gallop, rubs, systolic murmur - GI/Abdominal GI/Abdominal exam: Present: normal bowel sounds, soft, no peritoneal signs. Absent: distended, tenderness - Extremities Exam Extremities exam: Present: warm, radial pulses palpable and symetrical. Absent : calf tenderness, cyanotic, pedal edema - Neurological Exam Neurological exam: Present: alert, CN II-XII intact, oriented X3, no focal deficits. Absent: pronater drift, facial droop, speech deficit - Skin Skin exam: Present: dry, intact Internal Medicine: Result - Labs CBC & Chem 7: 12/03/16 03:06 12/03/16 03:06 Labs: Short CBC 12/03/16 Range/Units 03:06 WBC 11.5 H (4.3-11.1) K/mcL Hgb 12.3 (11.5-15.4) g/dL Hct 37.8 (35.3-44.9) % Plt Count 355 (140-400) K/mcL Neutrophils # 8.4 (1.6-8.9) K/mcL BMP 12/03/16 03:06 Sodium 140 Potassium 3.9 Chloride 103 Carbon Dioxide 26 BUN 13 Creatinine 0.90 Glucose 194 H Calcium 8.9 - ABG Interpretation ABG results: PT/INR, D-dimer PT 10.3 Seconds (9.4-12.1) 12/01/16 14:22 Consult Discharge Plan - Plan Referrals: Sara Hernandez DO [Primary Care Provider] -
[2016-12-03] MEDS ORDERED: Aminoglycoside Consult 1 EACH MC ONE (12:00)
[2016-12-03] MEDS: *HR* OxyCODONE/APAP 10/325 TABLET PO PRN ×2 (14:03→22:57)
[2016-12-03] MEDS: Oxymetazoline Nasal SPRAY BOTTLE NS PRN ×2 (14:21→22:57)
[2016-12-03] MEDS: Insulin DETEMIR 100 UNIT/ML X5UNITS SQ SCH (22:58)
[2016-12-04] MEDS ORDERED: cloNIDine HCl 0.1 MG TABLET PO ONE (05:13)
[2016-12-04] MEDS ORDERED: amLODIPine 5 MG TABLET PO SCH (05:30)
[2016-12-04] MEDS ORDERED: amLODIPine 5 MG TABLET PO ONE (07:53)
[2016-12-04] MEDS: Insulin LISPRO 300 UNITS/3 ML VIAL SQ SCH ×4 (08:24→21:53)
[2016-12-04 08:27] LABS: Basophils # 0.1 K/mcL (0.0-0.2); Basophils % 0.4 %; Eosinophils # 0.2 K/mcL (0.0-0.6); Eosinophils % 1.4 %; Hematocrit 38.1 % (35.3-44.9); Hemoglobin 12.8 g/dL (11.5-15.4); Immature Granulocytes % 0.2 % (0-4); Lymphocytes # 1.7 K/mcL (0.6-4.6); Lymphocytes % 13.5 %; Mean Corpuscular HGB Conc 33.6 g/dL (31.6-35.5); Mean Corpuscular Hemoglobin 29.1 pg (28.0-33.3); Mean Corpuscular Volume 86.6 fL (83.0-100.0); Mean Platelet Volume 9.4 fL (9.4-12.4); Monocytes # 0.7 K/mcL (0.0-1.3); Monocytes % 5.3 %; Neutrophils # 10.1 K/mcL (1.6-8.9); Platelet Count 365 K/mcL (140-400); Red Cell Distribution Width 13.2 % (11.5-14.5); Segmented Neutrophils % 79.2 %
[2016-12-04] MEDS: Multivit/Ca/Min/Fe/FA 1 TAB TABLET PO SCH (08:51)
[2016-12-04] MEDS: Furosemide 20 MG TABLET PO SCH (08:51)
[2016-12-04] MEDS: Aspirin Enteric Coated 81 MG Tablet PO SCH (08:51)
[2016-12-04] MEDS: Cholecalciferol (D-3) 1,000 UNIT TABLET PO SCH (08:51)
[2016-12-04] MEDS: Famotidine 20 MG/2 ML VIAL IVP SCH (08:52)
[2016-12-04] MEDS: Artificial Tears SOLN 15 ML BOTTLE BOTH EYES SCH ×4 (08:52→21:53)
[2016-12-04] MEDS: *HR* OxyCODONE/APAP 10/325 TABLET PO PRN ×2 (09:07→21:52)
[2016-12-04] MEDS: ASCORBIC ACID PO SCH (09:14)
[2016-12-04] MEDS: VITAMIN E PO SCH (09:14)
[2016-12-04] MEDS: BIOTIN PO SCH (09:14)
--- NOTE | 2016-12-04 10:28 | Internal Med Progress Note ---
Date of Encounter: 12/04/16 Time of Encounter: 10:28 - Assessment and plan (1) Sepsis Current Visit: Yes Status: Acute Assessment and plan: Present source most likely urinary Low suspicion for meningitis, patient refused LP Blood cuture preliminary no growth Urine culture is negative Patient is afebrile Leukocytosis improving Continue Ceftriaxone, d/c Vanco Qualifiers: Sepsis type: sepsis due to unspecified organism Qualified Code(s): A41.9 - Sepsis, unspecified organism (2) Insulin dependent diabetes mellitus Current Visit: Yes Status: Chronic Assessment and plan: A1C 7.2 Start levemir, continue SSI Continue FS ACHS AD diet (3) Hypertension Current Visit: Yes Status: Chronic Assessment and plan: Uncontrolled, increased amlodipine, continue to monitor Qualifiers: Hypertension type: essential hypertension Qualified Code(s): I10 - Essential (primary) hypertension (4) Fibromyalgia Current Visit: Yes Status: Chronic Assessment and plan: Resume home meds (5) Morbid obesity with BMI of 40.0-44.9, adult Current Visit: Yes Status: Chronic Assessment and plan: Lifestyle modification - Subjective Interval history: 76 F with PMH of CAD, DM, Fibromyalgia, GERD She is admitted and being managed for sepsis, suspected source is UTI and low suspicion for meningitis Patient has persistently refused lumber puncture She is making significant improvement. She has no new complains Preliminary cultures are negative - Constitutional Vitals: Temp Pulse Resp BP Pulse Ox 97.8 F 79 18 143/68 94 12/04/16 07:47 12/04/16 07:47 12/04/16 07:47 12/04/16 07:47 12/04/16 07:47 General appearance: Present: A&O X 3, morbidly obese, pleasant, no acute distress - Head Head exam: Present: atraumatic, normocephalic - Eye Eye exam: Present: PERRL, conjuntiva pink, sclera anicteric Pupils: Present: PERRL - Neck Neck exam general surgery: Present: supple, trachea midline. Absent: lymphadenopathy - Respiratory Respiratory exam: Present: CTAB. Absent: accessory muscle use, rales, rhonchi, wheezes - Cardiovascular Cardiovascular exam: Present: RRR, +S1, +S2. Absent: diastolic murmur, gallop, rubs, systolic murmur - GI/Abdominal GI/Abdominal exam: Present: normal bowel sounds, soft, no peritoneal signs. Absent: distended, tenderness - Extremities Exam Extremities exam: Present: warm, radial pulses palpable and symetrical. Absent : calf tenderness, cyanotic, pedal edema - Neurological Exam Neurological exam: Present: alert, CN II-XII intact, oriented X3, no focal deficits. Absent: pronater drift, facial droop, speech deficit - Skin Skin exam: Present: dry, intact Internal Medicine: Result - Labs CBC & Chem 7: 12/04/16 08:18 12/03/16 03:06 Labs: Short CBC 12/04/16 Range/Units 08:18 WBC 12.7 H (4.3-11.1) K/mcL Hgb 12.8 (11.5-15.4) g/dL Hct 38.1 (35.3-44.9) % Plt Count 365 (140-400) K/mcL Neutrophils # 10.1 H (1.6-8.9) K/mcL - ABG Interpretation ABG results: PT/INR, D-dimer PT 10.3 Seconds (9.4-12.1) 12/01/16 14:22 Consult Discharge Plan - Plan Referrals: Sara Hernandez DO [Primary Care Provider] -
[2016-12-04] MEDS: Insulin DETEMIR 100 UNIT/ML X5UNITS SQ SCH (21:54)
[2016-12-04] MEDS: Oxymetazoline Nasal SPRAY BOTTLE NS PRN (21:54)
[2016-12-05 05:02] LABS: Basophils # 0.1 K/mcL (0.0-0.2); Basophils % 0.5 %; Eosinophils # 0.2 K/mcL (0.0-0.6); Eosinophils % 1.7 %; Hematocrit 38.3 % (35.3-44.9); Hemoglobin 12.8 g/dL (11.5-15.4); Immature Granulocytes % 0.3 % (0-4); Lymphocytes # 2.3 K/mcL (0.6-4.6); Mean Corpuscular HGB Conc 33.4 g/dL (31.6-35.5); Mean Corpuscular Volume 86.7 fL (83.0-100.0); Mean Platelet Volume 9.6 fL (9.4-12.4); Monocytes # 0.8 K/mcL (0.0-1.3); Monocytes % 6.3 %; Neutrophils # 8.7 K/mcL (1.6-8.9); Platelet Count 391 K/mcL (140-400); Red Blood Count 4.42 M/mcL (3.82-4.97); Red Cell Distribution Width 13.2 % (11.5-14.5); Segmented Neutrophils % 72.2 %
[2016-12-05] MEDS: *HR* OxyCODONE/APAP 10/325 TABLET PO PRN ×3 (05:54→20:40)
[2016-12-05 07:13] LABS: Mycoplasma pneumoniae IgG 0.17 U/L (<=0.09)
[2016-12-05] MEDS ORDERED: Azithromycin 500 MG in D5% in Water 250 ML IVPB ONE (07:31)
[2016-12-05] MEDS: Cholecalciferol (D-3) 1,000 UNIT TABLET PO SCH (08:48)
[2016-12-05] MEDS: Multivit/Ca/Min/Fe/FA 1 TAB TABLET PO SCH (08:48)
[2016-12-05] MEDS: amLODIPine 5 MG TABLET PO SCH (08:48)
[2016-12-05] MEDS: Aspirin Enteric Coated 81 MG Tablet PO SCH (08:48)
[2016-12-05] MEDS: Furosemide 20 MG TABLET PO SCH (08:49)
[2016-12-05] MEDS: Artificial Tears SOLN 15 ML BOTTLE BOTH EYES SCH ×4 (08:51→20:41)
[2016-12-05] MEDS: Insulin LISPRO 300 UNITS/3 ML VIAL SQ SCH ×6 (08:51→20:41)
[2016-12-05] MEDS: VITAMIN E PO SCH (08:52)
[2016-12-05] MEDS: ASCORBIC ACID PO SCH (08:52)
[2016-12-05] MEDS: BIOTIN PO SCH (08:52)
[2016-12-05] MEDS: Oxymetazoline Nasal SPRAY BOTTLE NS PRN ×2 (08:53→22:21)
--- NOTE | 2016-12-05 08:58 | Internal Med Progress Note ---
Date of Encounter: 12/05/16 Time of Encounter: 08:57 - Assessment and plan (1) Sepsis Current Visit: Yes Status: Acute Assessment and plan: Present source most likely urinary Low suspicion for meningitis, patient refused LP Blood culture preliminary no growth Serology Positive for mycoplasma Urine culture is negative Patient is afebrile Leukocytosis stable at 12 Continue Ceftriaxone, add Azithromycin Qualifiers: Sepsis type: sepsis due to unspecified organism Qualified Code(s): A41.9 - Sepsis, unspecified organism (2) Insulin dependent diabetes mellitus Current Visit: Yes Status: Chronic Assessment and plan: A1C 7.2 Increase levemir, continue SSI Continue FS ACHS ADA diet (3) Hypertension Current Visit: Yes Status: Chronic Assessment and plan: Uncontrolled, increased amlodipine, add labetalol Qualifiers: Hypertension type: essential hypertension Qualified Code(s): I10 - Essential (primary) hypertension (4) Fibromyalgia Current Visit: Yes Status: Chronic Assessment and plan: Resume home meds (5) Morbid obesity with BMI of 40.0-44.9, adult Current Visit: Yes Status: Chronic Assessment and plan: Lifestyle modification - Subjective Interval history: 76 F with PMH of CAD, DM, Fibromyalgia, GERD She is admitted and being managed for sepsis, suspected source is UTI and low suspicion for meningitis Patient has persistently refused lumber puncture She is making significant improvement. She has no new complains Preliminary cultures are negative but noted Serum IgG Mycoplasma positive Since patient has persistent leukocytosis, will start azithromycin - Constitutional Vitals: Temp Pulse Resp BP Pulse Ox 97.6 F 91 16 156/73 96 12/05/16 07:41 12/05/16 07:41 12/05/16 07:41 12/05/16 07:41 12/05/16 07:41 General appearance: Present: A&O X 3, morbidly obese, pleasant, no acute distress - Head Head exam: Present: atraumatic, normocephalic - Eye Eye exam: Present: PERRL, conjuntiva pink, sclera anicteric Pupils: Present: PERRL - Neck Neck exam general surgery: Present: supple, trachea midline. Absent: lymphadenopathy - Respiratory Respiratory exam: Present: CTAB. Absent: accessory muscle use, rales, rhonchi, wheezes - Cardiovascular Cardiovascular exam: Present: RRR, +S1, +S2. Absent: diastolic murmur, gallop, rubs, systolic murmur - GI/Abdominal GI/Abdominal exam: Present: normal bowel sounds, soft, no peritoneal signs. Absent: distended, tenderness - Extremities Exam Extremities exam: Present: warm, radial pulses palpable and symetrical. Absent : calf tenderness, cyanotic, pedal edema - Neurological Exam Neurological exam: Present: alert, CN II-XII intact, oriented X3, no focal deficits. Absent: pronater drift, facial droop, speech deficit - Skin Skin exam: Present: dry, intact Internal Medicine: Result - Labs CBC & Chem 7: 12/05/16 04:30 12/03/16 03:06 Labs: Short CBC 12/05/16 Range/Units 04:30 WBC 12.1 H (4.3-11.1) K/mcL Hgb 12.8 (11.5-15.4) g/dL Hct 38.3 (35.3-44.9) % Plt Count 391 (140-400) K/mcL Neutrophils # 8.7 (1.6-8.9) K/mcL - ABG Interpretation ABG results: PT/INR, D-dimer PT 10.3 Seconds (9.4-12.1) 12/01/16 14:22 Consult Discharge Plan - Plan Referrals: Sara Hernandez DO [Primary Care Provider] - 12/12/16 4:15 pm (Please follow up as schedule...)
[2016-12-05] MEDS ORDERED: Insulin DETEMIR 100 UNIT/ML X5UNITS SQ SCH (21:00)
[2016-12-06] MEDS: *HR* OxyCODONE/APAP 10/325 TABLET PO PRN ×3 (04:54→23:45)
[2016-12-06 05:37] LABS: Basophils # 0.1 K/mcL (0.0-0.2); Basophils % 0.4 %; Eosinophils # 0.3 K/mcL (0.0-0.6); Hematocrit 37.7 % (35.3-44.9); Hemoglobin 12.7 g/dL (11.5-15.4); Immature Granulocytes % 0.4 % (0-4); Lymphocytes # 2.3 K/mcL (0.6-4.6); Mean Corpuscular HGB Conc 33.7 g/dL (31.6-35.5); Mean Corpuscular Hemoglobin 29.3 pg (28.0-33.3); Mean Corpuscular Volume 87.1 fL (83.0-100.0); Mean Platelet Volume 9.6 fL (9.4-12.4); Monocytes # 0.8 K/mcL (0.0-1.3); Monocytes % 5.5 %; Neutrophils # 10.2 K/mcL (1.6-8.9); Platelet Count 377 K/mcL (140-400); Red Blood Count 4.33 M/mcL (3.82-4.97); Red Cell Distribution Width 13.4 % (11.5-14.5); Segmented Neutrophils % 74.7 %
[2016-12-06] MEDS: Insulin LISPRO 300 UNITS/3 ML VIAL SQ SCH ×7 (08:15→22:29)
[2016-12-06] MEDS: Multivit/Ca/Min/Fe/FA 1 TAB TABLET PO SCH (08:16)
[2016-12-06] MEDS: Aspirin Enteric Coated 81 MG Tablet PO SCH (08:16)
[2016-12-06] MEDS: Artificial Tears SOLN 15 ML BOTTLE BOTH EYES SCH ×4 (08:16→22:28)
[2016-12-06] MEDS: Furosemide 20 MG TABLET PO SCH (08:16)
[2016-12-06] MEDS: Azithromycin 250 MG TABLET PO SCH (08:16)
[2016-12-06] MEDS: Cholecalciferol (D-3) 1,000 UNIT TABLET PO SCH (08:16)
[2016-12-06] MEDS: amLODIPine 5 MG TABLET PO SCH (08:16)
[2016-12-06] MEDS: ASCORBIC ACID PO SCH (08:18)
[2016-12-06] MEDS: VITAMIN E PO SCH (08:18)
[2016-12-06] MEDS: BIOTIN PO SCH (08:18)
[2016-12-06] MEDS: Insulin DETEMIR 100 UNIT/ML X5UNITS SQ SCH ×2 (12:29→22:29)
--- NOTE | 2016-12-06 15:13 | Internal Med Progress Note ---
Date of Encounter: 12/06/16 Time of Encounter: 11:35 - Assessment and plan (1) Sepsis Current Visit: Yes Status: Acute Assessment and plan: Present source most likely urinary, however is unclear so far, no growth in blood culures. Low suspicion for meningitis, patient refused LP Blood culture preliminary no growth Serology Positive for mycoplasma, however Ig G Urine culture is negative Patient is afebrile Leukocytosis stable at 12 Continue current antibiotics, follow cultures, if no growth and patient clinically well, possible discharge tomorrow in am. D/W patient in detail all her questions were answered. Qualifiers: Sepsis type: sepsis due to unspecified organism Qualified Code(s): A41.9 - Sepsis, unspecified organism (2) CAD (coronary artery disease) Current Visit: No Status: Chronic Qualifiers: Coronary Disease-Associated Artery/Lesion type: [place] artery [place] vs. transplanted heart: [place] heart Associated angina: without angina Qualified Code(s): I25.10 - Atherosclerotic heart disease of [place] coronary artery without angina pectoris (3) Insulin dependent diabetes mellitus Current Visit: Yes Status: Chronic Assessment and plan: A1C 7.2 Increase levemir and switched to BID, continue SSI. She is a usr of insulin at home, typically nph bid. Continue FS ACHS ADA diet (4) Hypertension Current Visit: Yes Status: Chronic Assessment and plan: Continue monitoring. Qualifiers: Hypertension type: essential hypertension Qualified Code(s): I10 - Essential (primary) hypertension (5) DVT prophylaxis Current Visit: No Status: Acute - Subjective Interval history: first encounter with the patient. afebrile feels much better. - Constitutional Vitals: Temp Pulse Resp BP Pulse Ox 98.1 F 76 18 154/63 95 12/06/16 11:04 12/06/16 11:04 12/06/16 11:04 12/06/16 11:04 12/06/16 11:04 General appearance: Present: A&O X 3, morbidly obese, pleasant, no acute distress - Head Head exam: Present: atraumatic, normocephalic - Eye Eye exam: Present: PERRL, conjuntiva pink, sclera anicteric Pupils: Present: PERRL - Neck Neck exam general surgery: Present: supple, trachea midline. Absent: lymphadenopathy - Respiratory Respiratory exam: Present: CTAB. Absent: accessory muscle use, rales, rhonchi, wheezes - Cardiovascular Cardiovascular exam: Present: RRR, +S1, +S2. Absent: diastolic murmur, gallop, rubs, systolic murmur - GI/Abdominal GI/Abdominal exam: Present: normal bowel sounds, soft, no peritoneal signs. Absent: distended, tenderness - Extremities Exam Extremities exam: Present: warm, radial pulses palpable and symetrical. Absent : calf tenderness, cyanotic, pedal edema - Neurological Exam Neurological exam: Present: CN II-XII intact, oriented X3, no focal deficits. Absent: pronater drift, facial droop, speech deficit - Skin Skin exam: Present: dry, intact Internal Medicine: Result - Labs CBC & Chem 7: 12/06/16 05:02 12/03/16 03:06 Labs: Short CBC 12/06/16 Range/Units 05:02 WBC 13.7 H (4.3-11.1) K/mcL Hgb 12.7 (11.5-15.4) g/dL Hct 37.7 (35.3-44.9) % Plt Count 377 (140-400) K/mcL Neutrophils # 10.2 H (1.6-8.9) K/mcL - ABG Interpretation ABG results: PT/INR, D-dimer PT 10.3 Seconds (9.4-12.1) 12/01/16 14:22 - VTE Documentation of Mechanical Device: Intermittent pneumatic compression device Consult Discharge Plan - Plan Referrals: Sara Hernandez DO [Primary Care Provider] - 12/12/16 4:15 pm (Please follow up as schedule...)
[2016-12-06] MEDS ORDERED: Insulin DETEMIR 100 UNIT/ML X5UNITS SQ SCH (21:00)
[2016-12-07] MEDS ORDERED: Saline Nasal Spray 44 ML BOTTLE NS PRN (01:17)
[2016-12-07 05:02] LABS: Basophils % 0.3 %; Eosinophils # 0.3 K/mcL (0.0-0.6); Eosinophils % 1.8 %; Hematocrit 36.4 % (35.3-44.9); Hemoglobin 12.2 g/dL (11.5-15.4); Immature Granulocytes % 0.5 % (0-4); Lymphocytes # 2.8 K/mcL (0.6-4.6); Lymphocytes % 19.3 %; Mean Corpuscular HGB Conc 33.5 g/dL (31.6-35.5); Mean Corpuscular Hemoglobin 29.1 pg (28.0-33.3); Mean Corpuscular Volume 86.9 fL (83.0-100.0); Mean Platelet Volume 9.5 fL (9.4-12.4); Monocytes # 0.7 K/mcL (0.0-1.3); Monocytes % 4.7 %; Neutrophils # 10.5 K/mcL (1.6-8.9); Platelet Count 374 K/mcL (140-400); Red Blood Count 4.19 M/mcL (3.82-4.97); Red Cell Distribution Width 13.7 % (11.5-14.5); Segmented Neutrophils % 73.4 %
[2016-12-07 05:14] LABS: BUN/Creatinine Ratio 20 (6-26); Blood Urea Nitrogen 17 mg/dL (7-20); Calcium 9.2 mg/dL (8.6-10.8); Carbon Dioxide 26 mEq/L (19-29); Chloride 104 mEq/L (98-109); Glucose 262 mg/dL (70-99); Osmolality,Calculated 297 (280-300); Potassium 3.8 mEq/L (3.5-4.5); Sodium 138 mEq/L (136-145); eGFR For African Americans > 60 (> 60); eGFR For Non-African Americans > 60 (> 60)
[2016-12-07] MEDS: Aspirin Enteric Coated 81 MG Tablet PO SCH (08:29)
[2016-12-07] MEDS: Multivit/Ca/Min/Fe/FA 1 TAB TABLET PO SCH (08:30)
[2016-12-07] MEDS: Cholecalciferol (D-3) 1,000 UNIT TABLET PO SCH (08:30)
[2016-12-07] MEDS: Azithromycin 250 MG TABLET PO SCH (08:30)
[2016-12-07] MEDS: Artificial Tears SOLN 15 ML BOTTLE BOTH EYES SCH (08:31)
[2016-12-07] MEDS: amLODIPine 5 MG TABLET PO SCH (08:31)
[2016-12-07] MEDS: Furosemide 20 MG TABLET PO SCH (08:31)
[2016-12-07] MEDS: Insulin LISPRO 300 UNITS/3 ML VIAL SQ SCH ×4 (08:31→11:42)
--- NOTE | 2016-12-07 09:06 | Discharge Summary ---
Date of Encounter: 12/07/16 Time of Encounter: 09:02 - Discharge Diagnosis (1) Sepsis Priority: Primary Status: Acute Qualifiers: Sepsis type: sepsis due to unspecified organism Qualified Code(s): A41.9 - Sepsis, unspecified organism (2) CAD (coronary artery disease) Priority: Secondary Status: Chronic Qualifiers: Coronary Disease-Associated Artery/Lesion type: [place] artery [place] vs. transplanted heart: [place] heart Associated angina: without angina Qualified Code(s): I25.10 - Atherosclerotic heart disease of [place] coronary artery without angina pectoris (3) Insulin dependent diabetes mellitus Priority: Secondary Status: Chronic (4) Hypertension Priority: Secondary Status: Chronic Qualifiers: Hypertension type: essential hypertension Qualified Code(s): I10 - Essential (primary) hypertension (5) DVT prophylaxis Priority: Secondary Status: Acute - Discharge Medications Prescriptions: Azithromycin [Zithromax] 500 mg PO DAILY #3 tablet Home Medications: Aspirin Enteric Coated [Aspirin EC] 81 mg PO DAILY 07/28/15 [History] Docusate [Colace] 100 mg PO BID 07/28/15 [History] Hydrochlorothiazide 25 mg PO DAILY 07/28/15 [History] Insulin ASPART [NovoLOG] 20 unit SQ TID 07/28/15 [History] Meclizine [Antivert] 25 mg PO DAILY PRN 07/28/15 [History] Multivit-Min/FA/Lycopen/Lutein [Centrum Silver Tablet] 1 tab PO DAILY 07/28/15 [ History] Omeprazole [PriLOSEC] 20 mg PO DAILY 07/28/15 [History] Potassium Chloride 20 meq PO BID 07/28/15 [History] Quinapril HCl [Accupril] 40 mg PO DAILY 07/28/15 [History] [place] Oil/[place]-3 Fatty Acids [Fish Oil 500 mg Softgel] 1 cap PO DAILY [History] Oxycodone HCl/Acetaminophen [Percocet 10-325 mg Tablet] 1 tab PO QID PRN #20 tablet 07/30/15 [Rx] Amlodipine Besylate 2.5 mg PO DAILY 08/08/16 [History] Ascorbic Acid/Vitamin E/Biotin [Hair Skin Nails-Biotin Gummies] 1 each PO DAILY 08/08/16 [History] Cholecalciferol (D-3) [Vitamin D] 1,000 unit PO DAILY 08/08/16 [History] Cinnamon Bark [Cinnamon] 500 mg PO DAILY 08/08/16 [History] Cyanocobalamin (B-12) [Vitamin B12] 1,000 mcg IJ QMONTH MDD 1ST OF MONTH [History] Dicyclomine HCl [Bentyl] 20 mg PO QID PRN 08/08/16 [History] Estradiol Cypionate [Depo-Estradiol] 25 mg IJ QMONTH 08/08/16 [History] Lactobacillus Acidophilus [Acidophilus Lactobacillus] 1 each PO DAILY 08/08/16 [ History] Ranitidine HCl [Zantac] 150 mg PO HS 08/08/16 [History] Amitriptyline [Elavil] 50 mg PO HS 12/01/16 [History] Cider Vinegar [Apple Cider Vinegar] 600 mg PO DAILY 12/01/16 [History] Furosemide [Lasix] 20 mg PO DAILY 12/01/16 [History] Gabapentin [Neurontin] See Taper PO AD 12/01/16 [History] Insulin NPH, HUMAN [HumuLIN N] 74 unit SQ QAM 12/01/16 [History] Loratadine [Claritin] 10 mg PO DAILY 12/01/16 [History] Rosuvastatin Calcium [Crestor] 5 mg PO DAILY 12/01/16 [History] Azithromycin [Zithromax] 500 mg PO DAILY #3 tablet 12/07/16 [Rx] Allergies/Adverse Reactions: Allergies gabapentin Allergy (Verified 12/01/16 13:25) Nausea morphine Allergy (Verified 12/01/16 13:25) Rash Sulfa (Sulfonamide Antibiotics) Allergy (Verified 12/01/16 13:25) Rash Date of admission: 12/01/16 21:17 Primary care physician: Cassandra Muñoz Consults: 12/02/16 08:32 Consult to Interventional Radiology [CONS] Stat Consulting Provider: Radiology Interventional Cols Reason for Consult: Lumbar puncture,m r/o meningitis Call Completed: Yes Discharging clinician: Jonn Pereyra Anticipated date of discharge: 12/07/16 - Patient Status Disposition: Home, Self-Care Condition: Fair Functional capacity at discharge: independent ambulation Overall status at discharge: patient is back to baseline - Discharge Instructions Follow Up With: Little,Sara E, DO [Primary Care Provider] - 12/12/16 4:15 pm (Please follow up as schedule...) - Diet and Activity Activity: increase activity as tolerated Diet: advance to your usual diet Interval History: Ms. Nickerson is a 76 year old female presents to the emergency room with multiple complains. She has been having fevers (99.6 on arrival to the ER), chills, generalized malaise. She has also been having over the past week headache and neck pain /stiffnes. No sick contacts or recent travel. No cough, expectoration , diarrhea, urinary symptoms, abdominal pain or open wounds. WBC [id number] on arrival to ED. No clear infectious cause on imaging of chest, abdomen/pelvis. Lumbar puncture was planned however anesthesiologits refused given her history of spine surgeries and spinal stenosis. Hospital course: Ms. Nickerson is a 76 year old female Presented intially with sepsis criteria, however is unclear so far, no growth in blood cultures after 5 days. Low suspicion for meningitis, patient refused LP. Serology Positive for mycoplasma, however Ig G Urine culture is negative Patient is afebrile Leukocytosis improved from admission howver she had mild leukocytosis throughout admission. Afebrile since inpatient, clinically doing good, feels much better. She completed course of iv rocephin, 7 doses, will discharge her home on po azithromycin and the patient was strongly recommended to follow up with her pcp upon discharge. She agreed with the plan. - Time Spent with Patient Total time spent providing and/or coordinating discharge services: - Constitutional Vitals: Temp Pulse Resp BP Pulse Ox 98.3 F 82 16 134/64 96 12/07/16 06:42 12/07/16 06:42 12/07/16 06:42 12/07/16 06:42 12/07/16 06:42 General appearance: Present: A&O X 3, morbidly obese, pleasant, no acute distress - Head Head exam: Present: atraumatic, normocephalic - Eye Eye exam: Present: PERRL, conjuntiva pink, sclera anicteric Pupils: Present: PERRL - Neck Neck exam general surgery: Present: supple, trachea midline. Absent: lymphadenopathy - Respiratory Respiratory exam: Present: CTAB. Absent: accessory muscle use, rales, rhonchi, wheezes - Cardiovascular Cardiovascular exam: Present: RRR, +S1, +S2. Absent: diastolic murmur, gallop, rubs, systolic murmur - GI/Abdominal GI/Abdominal exam: Present: normal bowel sounds, soft, no peritoneal signs. Absent: distended, tenderness - Extremities Exam Extremities exam: Present: warm, radial pulses palpable and symetrical. Absent : calf tenderness, cyanotic, pedal edema - Neurological Exam Neurological exam: Present: CN II-XII intact, oriented X3, no focal deficits. Absent: pronater drift, facial droop, speech deficit - Skin Skin exam: Present: dry, intact - VTE Documentation of Mechanical Device: Intermittent pneumatic compression device
[2016-12-07] MEDS: *HR* OxyCODONE/APAP 10/325 TABLET PO PRN (10:50)
[2016-12-07] MEDS: Insulin DETEMIR 100 UNIT/ML X5UNITS SQ SCH (10:52)
[2016-12-07 10:53] VITALS: BP 158/66
== END 2016-12-07 13:16 | disposition home or self-care (01) | DRG 871 ==
LOC: EMEROO 13:21 → ICNU 13:21 → SUATTDRO 21:17 → 2ANU 12-03 13:27
PROVIDERS: ADMIT Hospitalist; ATTEND Internal Medicine

== ENCOUNTER 2020-10-12 14:41 | Observation (INO) ==
[2020-10-12 15:14] LABS: Bilirubin,Urine Negative (Negative); Blood,Urine Small (Negative); Clarity,Urine Turbid (Clear); Color,Urine Light-Yellow (Yellow); Glucose,Urine (UA) Normal (Normal); Ketones,Urine Negative (Negative); Leukocyte Esterase,Urine Negative (Negative); Nitrite,Urine Negative (Negative); PH,Urine 5.5 pH Units (5.0-8.0); Protein,Urine 100 mg/dL (Neg-Trace); Renal Epithelial Cells,Urine Few per hpf (None-Few); Specific Gravity,Urine 1.011 (1.010-1.025); Squamous Epithelial Cell,Urine Few per hpf (None-Few); Transitional Epi Cells,Urine Few per hpf (None-Few); Urobilinogen,Urine Normal (Normal); WBC,Urine 0-3 per hpf (0-3)
[2020-10-12] MEDS ORDERED: Acetaminophen 650 MG RECTAL SUPP RC ONE (15:30)
[2020-10-12] MEDS ORDERED: 0.9 % Sodium Chloride 1,000 ML IVC ONE (15:31)
[2020-10-12] MEDS ORDERED: Piperacillin/Tazobactam 3.375 GM in 0.9 % Sodium Chloride Mini Bag 100 ML IVPB ONE (15:39)
[2020-10-12] MEDS ORDERED: Vancomycin 1,750 MG/517.5 ML IV.SOLN IVPB ONE (16:00)
[2020-10-12 16:26] LABS: Amphetamine Screen,Urine Negative ng/mL (Cutoff=1000); Barbiturate Screen,Urine Positive ng/mL (Cutoff=200); Benzodiazepines Screen,Urine Negative ng/mL (Cutoff=200); Cannabinoid Screen,Urine Negative ng/mL (Cutoff = 50); Cocaine Screen,Urine Negative ng/mL (Cutoff= 300); Opiate Screen,Urine Negative ng/mL (Cutoff=300); Phencyclidine Screen,Urine Negative ng/mL (Cutoff=25)
[2020-10-12 16:49] LABS: Hemoglobin 14.1 g/dL (11.5-15.4); Mean Corpuscular HGB Conc 32.8 g/dL (31.6-35.5); Mean Corpuscular Hemoglobin 29.1 pg (28.0-33.3); Mean Corpuscular Volume 88.8 fL (83.0-100.0); Mean Platelet Volume 9.8 fL (9.4-12.4); Platelet Count 304 K/mcL (140-400); Red Blood Count 4.84 M/mcL (3.82-4.97); Red Cell Distribution Width 13.3 % (11.5-14.5); White Blood Count 24.7 K/mcL (4.3-11.1)
[2020-10-12] MEDS ORDERED: Ondansetron 4 MG/2 ML VIAL IVP ONE ×2 (17:05→18:29)
[2020-10-12] MEDS ORDERED: Ketorolac 15 MG/ML VIAL IVP ONE (17:10)
[2020-10-12 17:18] LABS: Troponin I 0.04 ng/mL (< 0.04)
[2020-10-12 17:24] LABS: Acetaminophen < 10 mcg/mL (10-20); Ethanol < 10 mg/dL (Less than 10); Salicylate < 2.5 mg/dL (15.0-30.0)
[2020-10-12 17:35] LABS: Alanine Aminotransferase 10 Units/L (7-52); Albumin 4.2 g/dL (3.5-5.7); Albumin/Globulin Ratio 1.3 (1.1-2.2); Alkaline Phosphatase 80 Units/L (34-104); Aspartate Amino Transferase 14 Units/L (13-39); BUN/Creatinine Ratio 17 (6-26); Bilirubin,Direct 0.1 mg/dL (0.0-0.2); Bilirubin,Indirect 0.5 mg/dL (0.0-1.0); Bilirubin,Total 0.6 mg/dL (0.3-1.0); Blood Urea Nitrogen 15 mg/dL (8-23); Calcium 9.6 mg/dL (8.6-10.3); Carbon Dioxide 28 mEq/L (23-29); Chloride 96 mEq/L (98-107); Globulin 3.3 g/dL (2.4-3.5); Glucose 183 mg/dL (70-105); Lipase 5 Units/L (11-82); Osmolality,Calculated 286 (280-300); Potassium 3.9 mEq/L (3.5-5.1); Sodium 135 mEq/L (136-145); Total Protein 7.5 g/dL (6.4-8.9); eGFR For African Americans > 60 (> 60); eGFR For Non-African Americans > 60 (> 60)
[2020-10-12] MEDS ORDERED: *HR* HYDROmorphone (PF) 1 MG/ML SYRINGE IVP STA (18:29)
[2020-10-12] MEDS ORDERED: Naloxone 0.4 MG/ML INJ IVP PRN (19:46)
[2020-10-12] MEDS: 0.9 % Sodium Chloride 1,000 ML IVC SCH (20:28)
[2020-10-12] MEDS ORDERED: D5% in Water 1,000 ML IVC PRN (21:12)
[2020-10-12] MEDS ORDERED: *HR* Dextrose 50 % in Water (Vial) 50 ML VIAL IVP PRN (21:12)
[2020-10-12] MEDS ORDERED: Dextrose Gel 15 GM/37.5 ML TUBE PO PRN ×2 (21:12)
[2020-10-12] MEDS: Acetaminophen 325 MG TABLET PO PRN (22:23)
[2020-10-12] MEDS: Insulin LISPRO 300 UNITS/3 ML VIAL SUBQ SCH (22:24)
[2020-10-12] MEDS: *HR* OxyCODONE/APAP 10/325 TABLET PO PRN (22:55)
[2020-10-13] MEDS: Piperacillin/Tazobactam 3.375 GM in 0.9 % Sodium Chloride Mini Bag 100 ML IVPB SCH ×4 (00:21→23:15)
[2020-10-13 05:18] LABS: Hematocrit 40.8 % (35.3-44.9); Hemoglobin 13.2 g/dL (11.5-15.4); Mean Corpuscular HGB Conc 32.4 g/dL (31.6-35.5); Mean Corpuscular Hemoglobin 29.4 pg (28.0-33.3); Mean Corpuscular Volume 90.9 fL (83.0-100.0); Mean Platelet Volume 9.9 fL (9.4-12.4); Platelet Count 224 K/mcL (140-400); Red Blood Count 4.49 M/mcL (3.82-4.97); Red Cell Distribution Width 13.5 % (11.5-14.5)
[2020-10-13 05:21] LABS: White Blood Count 31.1 K/mcL (4.3-11.1)
[2020-10-13 05:25] LABS: Prothrombin Time 11.9 Seconds (9.4-12.1)
[2020-10-13 05:37] LABS: BUN/Creatinine Ratio 18 (6-26); Blood Urea Nitrogen 18 mg/dL (8-23); Calcium 8.6 mg/dL (8.6-10.3); Carbon Dioxide 25 mEq/L (23-29); Chloride 99 mEq/L (98-107); Glucose 206 mg/dL (70-105); Magnesium 1.6 mg/dL (1.6-2.6); Osmolality,Calculated 284 (280-300); Potassium 4.1 mEq/L (3.5-5.1); Sodium 133 mEq/L (136-145); eGFR For African Americans > 60 (> 60); eGFR For Non-African Americans 54 (> 60)
[2020-10-13] MEDS: 0.9 % Sodium Chloride 1,000 ML IVC SCH (05:37)
[2020-10-13] MEDS: Ondansetron ODT 4 MG TAB.RAPDIS SL PRN (05:58)
[2020-10-13] MEDS: *HR* OxyCODONE/APAP 10/325 TABLET PO PRN (06:16)
[2020-10-13] MEDS: Insulin LISPRO 300 UNITS/3 ML VIAL SUBQ SCH ×4 (07:53→21:01)
[2020-10-13] MEDS ORDERED: *HR* Enoxaparin 40 MG/0.4 ML SYRINGE SQ SCH (09:00)
[2020-10-13 10:45] LABS: Platelet Estimate Normal (Normal)
[2020-10-13] MEDS: *HR* Enoxaparin 40 MG/0.4 ML SYRINGE SQ SCH (10:47)
[2020-10-13 10:49] LABS: Neutrophils # 28.6 K/mcL (1.6-8.9)
[2020-10-13 10:50] LABS: Lymphocytes # 1.2 K/mcL (0.6-4.6); Monocytes # 1.2 K/mcL (0.0-1.3)
[2020-10-13] MEDS: Metoclopramide 10 MG/2 ML VIAL IVP PRN (12:32)
[2020-10-13] MEDS: Acetaminophen 325 MG TABLET PO PRN ×2 (14:38→22:34)
[2020-10-13] MEDS ORDERED: Vancomycin 1,750 MG/517.5 ML IV.SOLN IVPB SCH (16:00)
[2020-10-13] MEDS ORDERED: Perflutren Lipid Microsphere 1.3 ML in 0.9 % Sodium Chloride 8.7 ML IVP PRN (17:52)
[2020-10-14] MEDS: Ondansetron ODT 4 MG TAB.RAPDIS SL PRN (00:47)
[2020-10-14 04:08] LABS: Basophils % 0.2 %; Eosinophils # 0.1 K/mcL (0.0-0.6); Eosinophils % 0.3 %; Hematocrit 37.8 % (35.3-44.9); Hemoglobin 12.1 g/dL (11.5-15.4); Immature Granulocytes % 0.5 % (0-4); Lymphocytes # 0.9 K/mcL (0.6-4.6); Mean Corpuscular Hemoglobin 29.4 pg (28.0-33.3); Monocytes # 0.6 K/mcL (0.0-1.3); Monocytes % 3.7 %; Neutrophils # 13.9 K/mcL (1.6-8.9); Platelet Count 242 K/mcL (140-400); Red Blood Count 4.11 M/mcL (3.82-4.97); Red Cell Distribution Width 13.7 % (11.5-14.5); Segmented Neutrophils % 89.3 %; White Blood Count 15.6 K/mcL (4.3-11.1)
[2020-10-14 04:31] LABS: BUN/Creatinine Ratio 14 (6-26); Blood Urea Nitrogen 13 mg/dL (8-23); Calcium 8.3 mg/dL (8.6-10.3); Carbon Dioxide 30 mEq/L (23-29); Chloride 102 mEq/L (98-107); Glucose 266 mg/dL (70-105); Magnesium 1.9 mg/dL (1.6-2.6); Osmolality,Calculated 295 (280-300); Phosphorous 2.4 mg/dL (2.7-4.5); Potassium 3.7 mEq/L (3.5-5.1); Sodium 138 mEq/L (136-145); eGFR For African Americans > 60 (> 60); eGFR For Non-African Americans 60 (> 60)
[2020-10-14] MEDS: *HR* Enoxaparin 40 MG/0.4 ML SYRINGE SQ SCH (04:59)
[2020-10-14] MEDS: Metoclopramide 10 MG/2 ML VIAL IVP PRN ×3 (07:55→23:38)
[2020-10-14] MEDS: Insulin LISPRO 300 UNITS/3 ML VIAL SUBQ SCH ×4 (07:56→19:54)
[2020-10-14] MEDS: Cefdinir 300 MG CAPSULE PO SCH ×2 (10:54→19:54)
[2020-10-14] MEDS: *HR* OxyCODONE/APAP 10/325 TABLET PO PRN ×2 (10:54→18:26)
[2020-10-14 12:08] LABS: Adenovirus Not Detected (Not Detect); Bordetella Pertussis Not Detected (Not Detect); Chlamydophila pneumoniae Not Detected (Not Detect); Coronavirus 229E Not Detected (Not Detect); Coronavirus HKU1 Not Detected (Not Detect); Coronavirus NL63 Not Detected (Not Detect); Coronavirus OC43 Not Detected (Not Detect); Human Metapneumovirus Not Detected (Not Detect); Human Rhinovirus/Enterovirus Not Detected (Not Detect); Influenza A Subtype 2009 H1 Not Detected (Not Detect); Influenza B Not Detected (Not Detect); Mycoplasma pneumoniae Not Detected (Not Detect); Parainfluenza Virus 1 Not Detected (Not Detect); Parainfluenza Virus 2 Not Detected (Not Detect); Parainfluenza Virus 3 Not Detected (Not Detect); Parainfluenza Virus 4 Not Detected (Not Detect); Respiratory Syncytial Virus Not Detected (Not Detect)
[2020-10-14 12:23] LABS: C.difficile Toxin A/B Gene PCR Not detected (Not detect); Campylobacter by PCR Not detected (Not detect); Plesiomonas shigelloides PCR Not detected (Not detect); Salmonella PCR Not detected (Not detect); Vibrio PCR Not detected (Not detect); Vibrio cholerae PCR Not detected (Not detect); Yersinia enterocolitica PCR Not detected (Not detect)
[2020-10-14 12:24] LABS: Adenovirus F 40/41 PCR Not detected (Not detect); Astrovirus PCR Not detected (Not detect); Cryptosporidium by PCR Not detected (Not detect); Cyclospora cayetanensis PCR Not detected (Not detect); E. coli O157 by PCR Not detected (Not detect); Entamoeba histolytica PCR Not detected (Not detect); Enteroaggregative E.coli(EAEC) DETECTED (Not detect); Enteropathogenic E.coli(EPEC) Not detected (Not detect); Enterotoxigenic E.coli (ETEC) Not detected (Not detect); Giardia lamblia PCR Not detected (Not detect); Norovirus GI/GII PCR Not detected (Not detect); Rotavirus A PCR Not detected (Not detect); Sapovirus PCR Not detected (Not detect); Shig/EnteroinvasiveE coli EIEC Not detected (Not detect); Shigalike tox-prod E coli STEC Not detected (Not detect)
[2020-10-14] MEDS: carvediloL 6.25 MG TABLET PO SCH (19:54)
[2020-10-14] MEDS ORDERED: Latanoprost 2.5 ML BOTTLE BOTH EYES SCH (21:00)
[2020-10-14] MEDS: Acetaminophen 325 MG TABLET PO PRN (23:38)
[2020-10-15 02:16] LABS: Basophils % 0.2 %; Eosinophils % 0.2 %; Hematocrit 37.9 % (35.3-44.9); Hemoglobin 12.3 g/dL (11.5-15.4); Immature Granulocytes % 0.5 % (0-4); Lymphocytes # 1.3 K/mcL (0.6-4.6); Lymphocytes % 6.9 %; Mean Corpuscular HGB Conc 32.5 g/dL (31.6-35.5); Mean Corpuscular Hemoglobin 29.5 pg (28.0-33.3); Mean Corpuscular Volume 90.9 fL (83.0-100.0); Monocytes # 0.7 K/mcL (0.0-1.3); Monocytes % 3.9 %; Neutrophils # 16.1 K/mcL (1.6-8.9); Platelet Count 286 K/mcL (140-400); Red Blood Count 4.17 M/mcL (3.82-4.97); Red Cell Distribution Width 13.4 % (11.5-14.5); Segmented Neutrophils % 88.3 %; White Blood Count 18.2 K/mcL (4.3-11.1)
[2020-10-15 02:35] LABS: BUN/Creatinine Ratio 20 (6-26); Blood Urea Nitrogen 16 mg/dL (8-23); Calcium 8.6 mg/dL (8.6-10.3); Carbon Dioxide 30 mEq/L (23-29); Chloride 99 mEq/L (98-107); Glucose 286 mg/dL (70-105); Osmolality,Calculated 292 (280-300); Phosphorous 2.1 mg/dL (2.7-4.5); Potassium 3.8 mEq/L (3.5-5.1); Sodium 135 mEq/L (136-145); eGFR For African Americans > 60 (> 60); eGFR For Non-African Americans > 60 (> 60)
[2020-10-15] MEDS: *HR* Enoxaparin 40 MG/0.4 ML SYRINGE SQ SCH (06:14)
[2020-10-15] MEDS: Metoclopramide 10 MG/2 ML VIAL IVP PRN (06:22)
[2020-10-15] MEDS: Cefdinir 300 MG CAPSULE PO SCH (07:55)
[2020-10-15] MEDS: carvediloL 6.25 MG TABLET PO SCH (07:55)
[2020-10-15] MEDS: Insulin LISPRO 300 UNITS/3 ML VIAL SUBQ SCH ×2 (07:55→12:04)
[2020-10-15] MEDS ORDERED: amLODIPine 5 MG TABLET PO SCH (09:00)
[2020-10-15 10:41] VITALS: BP 175/76
[2020-10-15] MEDS: Ondansetron ODT 4 MG TAB.RAPDIS SL PRN (11:51)
== END 2020-10-15 14:32 | disposition home health service (06) ==
LOC: 2ANU 14:41 → EMEROOARM 14:41 → SUATTDRO 18:51 → 2ANU 19:42
PROVIDERS: ADMIT Family Medicine; ATTEND Internal Medicine